=== PATIENT | female | born 1980 | race Caucasian/White ===

== ENCOUNTER 2021-04-15 17:13 | Emergency (ER) | payer MEDICARE, SELFPAY ==
[2021-04-15 17:38] VITALS: BP 114/73; PULSE 101; RESP 20; TEMP 37.1; O2SAT 101
--- NOTE | 2021-04-15 18:30 | ED.URI ---
HPI - URI/Sore Throat General Chief Complaint: Upper Respiratory Infection Stated Complaint: Fever,Cough,Chills Source: patient and RN notes reviewed Limitations: no limitations History of Present Illness HPI Narrative: The vaccinated patient, who is a smoker/rare drinker with RAD, presents with cough. Patient states she had single dose [employer] vaccine on 28 March. Now she complains of a couple day history of fever to 102, cough, congestion. Symptoms are mild, somewhat worse at night; no increased wheezing, CP, vomiting/diarrhea, S OB, rash, loss of taste/smell. [id number] testing for Covid antigen is strongly/early positive. Patient advised to isolate, and follow instructions on the Covid handout. Related Data Home Medications Medication Instructions Recorded Confirmed albuterol sulfate 90 mcg INHALATION PRN PRN 04/15/21 04/15/21 Allergies Allergy/AdvReac Type Severity Reaction Status Date / Time clindamycin Allergy Severe TONGUE Verified 04/15/21 18:35 SWELLING Review of Systems Review of Systems: General/Constitutional: No weight loss, REPORTS fever Eyes: N0: Redness,discharge Ears/Nose/Throat: No: Epistaxis,ear discharge Respiratory: Denies: Hemoptysis Gastrointestinal: No Vomiting, Bleeding-rectal Skin: No Lumps, eruption Neurologic: No Focal Weakness,Sz Hematologic: Denies: Petechiae/Purpura Psychiatric: No: Suicida ideationl All Other Systems: Reviewed and Negative PMFSH Social History Social History Gender identity (if verbalized by the patient): Female Comments At time of signature, agree with nursing past medical, surgical, social and family history. There is no relevant family history pertinent to the presenting complaint Exam Narrative: General Appearance: Slightly flushed/febrile appearing, well nourished EYE: PERRLA, Conjunctiva clear Ears: Auditory canal normal, TM normal Nose: Rhinorrhea, Mucousal erythema Mouth/Throat: MM moist, Supple, Respiratory: No respiratory distress, airway patent Cardiovascular: RRR, No JVD Musculoskeletal: Non tender, Normal strength Skin: Warm, Dry Neurological: A&O x3, CN II-XII intact Psychiatric: Normal mood, Normal affect The patient agrees, in light of health emergency- in my medical judgement, only a personal chat was preferable to fully undress & examine the patient exhibiting potential COVID symptoms, in order to limit risk of infection. Course Vital Signs Vital signs: Vital Signs Temperature 98.8 F 04/15/21 17:38 Pulse Rate 101 H 04/15/21 17:38 Respiratory Rate 20 04/15/21 17:38 Blood Pressure 114/73 04/15/21 17:38 Pulse Oximetry 101 H 04/15/21 17:38 Temperature 98.8 F 04/15/21 17:38 Pulse Rate 101 H 04/15/21 17:38 Respiratory Rate 20 04/15/21 17:38 Blood Pressure 114/73 04/15/21 17:38 Pulse Oximetry 98 04/15/21 18:45 MDM - URI/Sore Throat Lab Data Labs: Lab Results 04/15/21 Range/Units 18:00 POC SARS CoV-2 Ag Positive (Negative) Discharge Plan Discharge Clinical Impression: COVID-19 Patient Disposition: Home, Self-Care Condition: Stable Instructions: COVID-19 (Coronavirus Disease 2019) (ED) Additional Instructions: As discussed begin isolation, and quarantine close family contacts Get vitamins D, B, C, zinc and baby aspirin at pharmacy; and , use your prior pulse oximetry and return for less than a A gradient of<94%.Return if worsens per handout Prescriptions: New benzonatate [Tessalon Perles] 100 mg capsule 100 mg PO TID Qty: 20 RF: 1 albuterol sulfate [Ventolin HFA] 90 mcg/actuation HFA aerosol inhaler 2 puff INHALATION QID PRN (Reason: shortness of breath or wheezing) Qty: 8.5 RF: 1 Discontinued albuterol sulfate [Ventolin HFA] 90 mcg/actuation HFA aerosol inhaler 90 mcg INHALATION DAILY RF: 0 No Action albuterol sulfate 90 mcg/actuation HFA aerosol inhaler 90 mcg INHALATION PRN PRN (Reason: Wh
[2021-04-15 18:45] VITALS: O2SAT 98
== END 2021-04-15 18:55 | disposition home or self-care (01) ==
PROVIDERS: Emergency Provider Emergency Medicine; PCP Family Medicine
DX: U07.1 COVID-19 (principal); J45.909 Unspecified asthma, uncomplicated
CPT/HCPCS: 87426; 99213; C9803; G0463

== ENCOUNTER 2021-05-28 14:54 | Emergency (ER) | payer MEDICARE, SELFPAY ==
--- NOTE | ~2021-05-28 | XR_ITS ---
EXAMINATION: XR chest 2V DATE: 05/28/2021 15:29 INDICATION: Shortness of breath and wheezing TECHNIQUE: PA and lateral views of the chest were obtained. COMPARISON: Chest radiograph dated 09/20/2017 FINDINGS: Chronic pleural parenchymal scarring with unchanged blunting at the right costophrenic angle but not at the posterior sulcus. No airspace opacities, pulmonary edema, pleural effusion or pneumothorax. Th e cardiomediastinal silhouette is normal. Mild thoracic spondylosis with chronic mild anterior wedgin g of a couple mid thoracic vertebral bodies. IMPRESSION: 1. Chronic scarring at the right lung base. No acute cardiopulmonary disease. Reviewed, dictated and finalized at location A.
[2021-05-28 15:09] VITALS: BP 129/91; PULSE 102; RESP 18; TEMP 36.8; O2SAT 98
[2021-05-28 15:33] VITALS: PULSE 100; O2SAT 99
--- NOTE | 2021-05-28 15:41 | ED.SOB ---
HPI - SOB/Dyspnea General Chief Complaint: Shortness of Breath/Dyspnea Stated Complaint: Shortness of breath Source: patient and RN notes reviewed Limitations: no limitations History of Present Illness HPI Narrative: The vaccinated patient, who is a smoker/nondrinker and asthmatic, presents with shortness of breath. Patient states she has a history of cough and occasional wheezing. She reports she had Covid illness half month after her second vaccine, in March. Her last steroids were in February; no fever, CP, sore throat, earache, vomiting/diarrhea. Symptoms are mild, somewhat worse at night/positionally when supine, somewhat seasonal/yearly; patient requests refill of inhaler and allergy med will be given for seasonal component. Related Data Home Medications Medication Instructions Recorded Confirmed albuterol sulfate 90 mcg INHALATION PRN PRN 04/15/21 04/15/21 albuterol sulfate [Ventolin HFA] 2 puff INHALATION PRN PRN 05/28/21 05/28/21 duloxetine 30 mg PO DAILY 05/28/21 05/28/21 hydroxyzine HCl 25 mg PO DAILY 05/28/21 05/28/21 ipratropium-albuterol [Combivent 2 puff INHALATION DAILY 05/28/21 05/28/21 Respimat] quetiapine 25 mg PO DAILY 05/28/21 05/28/21 Allergies Allergy/AdvReac Type Severity Reaction Status Date / Time clindamycin Allergy Severe TONGUE Verified 04/15/21 18:35 SWELLING Review of Systems Review of Systems: The patient has been informed that they may have pre-hypertension or Hypertension based on a BP reading in the department. I recommend that the patient call the primary care provider listed on their discharge instructions or a physician of their choice this week to arrange follow up for further evaluation of possible pre-hypertension or Hypertension General/Constitutional: No weight loss,fever Eyes: N0: Redness,discharge Ears/Nose/Throat: No: Epistaxis,ear discharge Respiratory: Denies: Hemoptysis Gastrointestinal: No Vomiting, Bleeding-rectal Skin: No Lumps, eruption Neurologic: No Focal Weakness,Sz Hematologic: Denies: Petechiae/Purpura Psychiatric: No: Suicida ideationl All Other Systems: Reviewed and Negative PMF Social History Social History Gender identity (if verbalized by the patient): Female Comments At time of signature, agree with nursing past medical, surgical, social and family history. There is no relevant family history pertinent to the presenting complaint Exam Narrative: General Appearance: Well appearing, Well nourished EYE: PERRLA, Conjunctiva clear Ears: Auditory canal normal, TM normal Nose: Rhinorrhea, Mucousal erythema Mouth/Throat: MM moist, Uvula midline, Pharyngeal erythema Neck: Supple, No adenopathy Respiratory: No respiratory distress, Breath sounds equal, mild wheezing Cardiovascular: RRR, No JVD Musculoskeletal: Non tender, Normal strength Skin: Warm, Dry Neurological: A&O x3, CN II-XII intact Psychiatric: Normal mood, Normal affect Course Vital Signs Vital signs: Vital Signs Temperature 98.3 F 05/28/21 15:09 Pulse Rate 102 H 05/28/21 15:09 Respiratory Rate 18 05/28/21 15:09 Blood Pressure 129/91 H 05/28/21 15:09 Pulse Oximetry 98 05/28/21 15:09 Temperature 98.3 F 05/28/21 15:09 Pulse Rate 100 05/28/21 15:33 Respiratory Rate 18 05/28/21 15:09 Blood Pressure 129/91 H 05/28/21 15:09 Pulse Oximetry 99 05/28/21 15:33 Discharge Plan Discharge Clinical Impression: Asthma with exacerbation Qualifiers: Asthma severity: mild Asthma persistence: unspecified Qualified Code(s): J45.901 - Unspecified asthma with (acute) exacerbation Patient Disposition: Home, Self-Care Condition: Stable Instructions: Antibiotic Form, Bronchospasm (ED) Prescriptions: New azithromycin 250 mg tablet See Rx Instructions .ROUTE .COMPLEX Qty: 6 RF: 0 prednisone 20 mg tablet 60 mg PO DAILY Qty: 21 RF: 0 benzonatate [Tessalon Perles] 100 mg capsule 100 mg PO TID Qty: 20 RF
== END 2021-05-28 15:50 | disposition home or self-care (01) ==
PROVIDERS: Emergency Provider Emergency Medicine
DX: J45.901 Unspecified asthma with (acute) exacerbation (principal); Z86.16 Personal history of COVID-19; F31.9 Bipolar disorder, unspecified
CPT/HCPCS: 71046; 99203; G0463

== ENCOUNTER 2021-10-31 10:16 | Emergency (ER) | payer MEDICARE, SELFPAY ==
--- NOTE | 2021-10-31 10:18 | ED.URI ---
HPI - URI/Sore Throat General Chief Complaint: Upper Respiratory Infection Stated Complaint: fever, cough, body aches Time Seen by Provider: 10/31/21 10:19 Source: patient and RN notes reviewed History of Present Illness HPI Narrative: Patient is a 41-year-old female who presents the urgent care with complaints of fever, cough, body aches and headache for the last 2 to 3 days. Patient does have a history of asthma and states she has been using her inhaler and nebulizers. Patient has been taking Tylenol for the fever. Patient was Covid positive in May. Denies of any nausea or vomiting. Denies of any ill contacts. No other complaints. No acute distress noted. Patient aware of the plan of care. Some parts of this dictation were generated by voice recognition software and may contain typographical and/or grammatical inaccuracies. Related Data Home Medications Medication Instructions Recorded Confirmed albuterol sulfate 90 mcg INHALATION PRN PRN 04/15/21 10/31/21 duloxetine 30 mg PO DAILY 05/28/21 10/31/21 ipratropium-albuterol [Combivent 2 puff INHALATION DAILY 05/28/21 10/31/21 Respimat] quetiapine 25 mg PO DAILY 05/28/21 10/31/21 Allergies Allergy/AdvReac Type Severity Reaction Status Date / Time clindamycin Allergy Severe TONGUE Verified 04/15/21 18:35 SWELLING Review of Systems Review of Systems: CONSTITUTIONAL: Reports of fever, chills, fatigue EYES: Denies visual changes, redness, or discharge. ENT: Denies rhinorrhea, congestion, sore throat, or otalgia. CARDIOVASCULAR: Denies chest pain, palpitations, or edema. RESPIRATORY: Reports of cough without dyspnea GASTROINTESTINAL: Denies abdominal pain, nausea, vomiting, or diarrhea. GENITOURINARY: Denies dysuria or hematuria. SKIN: Denies rash or itching. MUSCULOSKELETAL: Denies back pain, joint pain. Reports of body aches NEUROLOGIC: Reports of headache All other systems reviewed are negative, except as documented in HPI. [facility] Social History Social History Gender identity (if verbalized by the patient): Female Comments At the time of my signature, I reviewed and agree with the nursing past medical, surgical, social, and family history. There is no relevant family history pertinent to the patient complaint. Exam Narrative: GENERAL: This is a well-nourished, well-developed patient, in no apparent distress. HEAD: normocephalic, atraumatic. EYES: PERRL. Sclera clear/white. Vision is grossly intact. EARS: External ears normal, auditory canals clear and without drainage, TMs normal without perforation. Hearing grossly intact. NOSE: External nose normal with no obvious nasal discharge, nares without redness, no rhinorrhea. THROAT: Mucous membranes moist, posterior pharynx clear. Moderate postnasal drainage NECK: Neck supple, non-tender without lymphadenopathy CARDIOVASCULAR: Regular rate and rhythm without murmurs, gallops, or rubs. RESPIRATORY: Expiratory wheezes to bilateral upper lobes with slight crackles throughout. SKIN: warm, intact with no suspicious lesions or rash, good texture and turgor. NEURO: awake, alert, and oriented to person, place and time. There were no obvious focal neurologic abnormalities. EXTREMITIES: No clubbing, cyanosis, or edema. Course Course Level of Care: Express Care Visit Vital Signs Vital signs: Vital Signs Temperature 97.3 F L 10/31/21 10:35 Pulse Rate 89 10/31/21 10:35 Respiratory Rate 16 10/31/21 10:35 Blood Pressure 128/77 10/31/21 10:35 Pulse Oximetry 98 10/31/21 10:35 Temperature 97.3 F L 10/31/21 10:35 Pulse Rate 89 10/31/21 10:35 Respiratory Rate 16 10/31/21 10:35 Blood Pressure 128/77 10/31/21 10:35 Pulse Oximetry 98 10/31/21 10:35 Reviewed MDM - URI/Sore Throat MDM Narrative Medical decision making narrative: Reviewed lab results with the patient. She is aware that rapid Covid, influenza and strep were all negative. Educated patient on strep culture we will call
[2021-10-31 10:35] VITALS: BP 128/77; PULSE 89; RESP 16; TEMP 36.3; O2SAT 98
== END 2021-10-31 11:27 | disposition home or self-care (01) ==
PROVIDERS: Emergency Provider Nurse Practitioner Family; PCP Family Medicine
DX: J40 Bronchitis, not specified as acute or chronic (principal); Z20.822 Contact with and (suspected) exposure to COVID-19; J45.909 Unspecified asthma, uncomplicated; F31.9 Bipolar disorder, unspecified; Z86.16 Personal history of COVID-19
CPT/HCPCS: 87081; 87426; 87804; 87880; 99213; C9803; G0463

== ENCOUNTER 2023-08-05 19:08 | Emergency (ER) | payer MEDICARE, SELFPAY ==
[2023-08-05 19:12] VITALS: BP 144/87; PULSE 83; RESP 20; TEMP 37.4; O2SAT 100
--- NOTE | 2023-08-05 19:17 | ED.GENADULT ---
HPI - General Adult General Chief complaint: Nausea/Vomiting/Diarrhea Stated complaint: Vomiting, Diarrhea Source: patient, RN notes reviewed and old records reviewed Mode of arrival: ambulatory Limitations: no limitations History of Present Illness HPI narrative: 43-year-old female presents to [facility] with complaint of fever that started last p.m. then today had nausea, vomiting, diarrhea. Patient states vomited approximately 6 times today. Patient states taking Zofran that does help. complaint: N/V/D Onset (ago): day(s) (1) Related Data Home Medications Medication Instructions Recorded Confirmed albuterol sulfate 90 mcg/actuation 90 mcg inhalation Q4-6H PRN 04/15/21 08/05/23 aerosol inhaler Wheezing ipratropium 20 mcg-albuterol 100 2 puff inhalation DAILY 05/28/21 08/05/23 mcg/actuation mist for inhalation (Combivent Respimat) quetiapine 25 mg tablet 25 mg PO DAILY 05/28/21 08/05/23 duloxetine 40 mg capsule,delayed 40 mg PO DAILY 08/05/23 08/05/23 release ondansetron HCl 4 mg tablet 4 mg PO Q6H PRN Nausea And Vomiting 08/05/23 08/05/23 Allergies Allergy/AdvReac Type Severity Reaction Status Date / Time clindamycin Allergy Severe TONGUE Verified 08/05/23 19:23 SWELLING Review of Systems Constitutional: Constitutional: Reports no additional constitutional complaints, Reports body ache(s), Denies chills, Denies fatigue, Reports fever(s) and Denies headache(s) Eyes: Eyes: Reports no additional eye complaints and Denies blurry vision ENT: Reports system reviewed and no additional complaints, except as documented, Denies vertigo, Denies dizziness, Denies ear discharge, Denies otalgia, Denies facial pain, Denies headache(s), Denies nasal congestion, Denies nasal discharge, Denies sinus pain, Denies sinus pressure and Denies sore throat Cardiovascular: Cardiovascular: Reports no additional cardiovascular complaints, Denies chest pain, Denies chest pain at rest, Denies rapid heart rate and Denies dyspnea Respiratory: Respiratory: Reports no additional respiratory complaints, Denies chest congestion, Denies cough, Denies pain on inspiration, Denies pain with cough and Denies dyspnea Gastrointestinal: Gastrointestinal: Reports as per HPI, Reports abdominal pain, Reports diarrhea, Reports nausea and Reports vomiting Integumentary/Breasts: Skin/Breast: Denies rash Neurologic: Reports system reviewed and no additional complaints, except as documented, Denies vertigo, Denies dizziness and Denies headache(s) Endocrine: Endocrine: Denies fatigue PMFSH Social History Social History Gender identity (if verbalized by the patient): Female Comments At the time of my signature, I reviewed and agree with the nursing past medical, surgical, social, and family history. There is no relevant family history pertinent to the patient complaint. Exam Const: General: cooperative, healthy appearing, no acute distress and well nourished Nutritional Appearance: well nourished Orientation/consciousness: patient oriented x3 Limitations: no limitations HENMT: Head: normal to inspection and normocephalic Ears: external ears normal, TM's normal bilaterally, mastoids normal and Abnormal EAC present Face/Nose/Sinus: normal facial exam Face and sinus: normal facial exam Mouth: Yes Normal oral and palatal mucosa present, Yes oropharynx normal and Yes moist mucous membranes Throat: tonsils normal, uvula midline and no uvular edema Eyes: General: appearance normal, both eyes and all related structures Sclera: sclerae normal Pupils: Equal, round and reactive pupils present Resp: Effort & Inspection: normal respiratory effort, able to speak in complete sentences, no audible wheezes, no cough, no respiratory distress and no retractions Auscultation: clear to auscultation bilaterally, no crackles, no rales, no rhonchi and no wheezes Cardio: Rate: regular rate Rhythm: reg
== END 2023-08-05 19:40 | disposition home or self-care (01) ==
PROVIDERS: Emergency Provider Registered Nurse; PCP Family Medicine
DX: K52.9 Noninfective gastroenteritis and colitis, unspecified (principal); Z79.899 Other long term (current) drug therapy; Z20.822 Contact with and (suspected) exposure to COVID-19
CPT/HCPCS: 87426; 87804; 99213; C9803; G0463

== ENCOUNTER 2023-08-27 18:42 | Emergency (ER) | payer MEDICARE, SELFPAY ==
[2023-08-27 18:50] VITALS: BP 118/70; PULSE 81; RESP 18; TEMP 36.9; O2SAT 99
--- NOTE | 2023-08-27 19:35 | ED.GENADULT ---
HPI - General Adult General Chief complaint: Nausea/Vomiting/Diarrhea Stated complaint: nausea/diarrhea Time Seen by Provider: 08/27/23 19:35 Source: patient, RN notes reviewed and old records reviewed Mode of arrival: ambulatory Limitations: no limitations History of Present Illness HPI narrative: 43-year-old female presents to [facility] with complaints of having nausea and vomiting 2 weeks ago that lasted about a week. Patient reports that had return of nausea and vomiting and diarrhea yesterday, afebrile with no blood noted in emesis or stools, which has improved today with use of Zofran and Imodium, no symptoms this evening and wants to return to work tomorrow. Patient reports no fevers and has been able to eat and drink this evening with no symptoms and is urinating well. MD complaint: episode of nausea and vomiting yesterday which has resolved Onset (ago): day(s) (1) Treatments prior to arrival: other (zofran and imodium) Related Data Home Medications Medication Instructions Recorded Confirmed quetiapine 25 mg tablet 25 mg PO DAILY 05/28/21 08/27/23 albuterol sulfate 90 mcg/actuation See Rx Instructions .Route 08/27/23 08/27/23 aerosol inhaler .COMPLEX PRN sob buprenorphine 300 mg/1.5 mL See Rx Instructions .Route .COMPLEX 08/27/23 08/27/23 solution,exten.rel.subcutaneous syringe (Sublocade) duloxetine 40 mg capsule,delayed mg PO 08/27/23 08/27/23 release ipratropium 20 mcg-albuterol 100 inhalation 08/27/23 mcg/actuation mist for inhalation (Combivent Respimat) Allergies Allergy/AdvReac Type Severity Reaction Status Date / Time clindamycin Allergy Severe TONGUE Verified 08/27/23 19:24 SWELLING Review of Systems Review of Systems: CONSTITUTIONAL: Denies malaise, chills, sweats, or fever. EYES: Denies visual changes, redness, or discharge. ENT: Reports no rhinorrhea, congestion, sinus pain, otalgia or sore throat. CARDIOVASCULAR: Denies chest pain, palpitations, or edema. RESPIRATORY: Reports cough.? Denies dyspnea. GASTROINTESTINAL: Denies abdominal pain,no present nausea, vomiting, diarrhea SKIN: Denies rash or itching. MUSCULOSKELETAL: Denies myalgia. NEUROLOGIC: Denies headache. All systems reviewed & are unremarkable except as noted in HPI and below PMFSH Past Medical History Medical History (Updated 08/28/23 @ 13:29 by Cortney Steele NP) Asthma Bipolar disorder History of sinus problem Pneumonia Surgical History Surgical History (Updated 08/28/23 @ 13:21 by Cortney Steele NP) H/O tubal ligation Social History Social History (Updated 08/28/23 @ 13:20 by Cortney Steele NP) Smoking packs per day: 0.5 Smoking cigarettes per day: 10.0 Years smoked: 25 Smoking pack-years: 12.50 Smoking status: Current every day smoker Tobacco type: cigarettes Alcohol intake: unknown Substance use type: former substance user, 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 There is no relevant family history pertinent to the presenting complaint Exam Narrative: GENERAL: Well-appearing, well-nourished, and in no acute distress. HEAD: Normocephalic EYES: PERRLA, conjunctivae clear ENT: Nares clear, turbinates edematous and erythematous, clear discharge. Mucous membranes moist. TM pearly mccarthy with dull light reflex bilaterally; no tragal tenderness. Oropharynx erythematous without lesions. Tonsils not enlarged and without exudate, no drooling, no hoarseness, no trismus, uvula midline. NECK: Supple. No lymphadenopathy CHEST: Clear to auscultation, breath sounds equal. No wheezing, rhonchi, rales, or stridor. No respiratory distress, speaks in full sentences.no cough noted SAO2 99% on room air HEART: Regular rate and rhythm. No murmur heard. Abdomen: soft and nontender t
== END 2023-08-27 19:50 | disposition home or self-care (01) ==
PROVIDERS: Emergency Provider Registered Nurse; PCP Family Medicine
DX: R11.2 Nausea with vomiting, unspecified (principal); R19.7 Diarrhea, unspecified; Z79.899 Other long term (current) drug therapy; F17.210 Nicotine dependence, cigarettes, uncomplicated
CPT/HCPCS: 99211; G0463

== ENCOUNTER 2023-09-25 10:10 | Emergency (ER) | payer MEDICARE, SELFPAY ==
[2023-09-25 10:16] VITALS: BP 141/84; PULSE 85; RESP 14; TEMP 36.7; O2SAT 99
--- NOTE | 2023-09-25 11:27 | ED.URI ---
HPI - URI/Sore Throat General Chief Complaint: Upper Respiratory Infection Stated Complaint: Right Ear Pain/Sore Throat/Fever Time Seen by Provider: 09/25/23 11:20 Source: patient, RN notes reviewed and old records reviewed Mode of arrival: ambulatory Limitations: no limitations History of Present Illness HPI Narrative: 43-year-old female who presents to [facility] with complaints right ear pain, sore throat, headache,with some low-grade fevers up to 100 F since yesterday. Patient reports she has taken Tylenol for her symptoms. Patient does have underlying lung problems; a history of COPD and continues to use tobacco. 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 Patient reports no body aches or chills. MD elicited complaint: fever, sore throat and other (ear pain, headache) Pertinent past history: pneumonia, asthma, seasonal allergies and other (tobacco abuse) Onset (ago): day(s) (day 2 of symptoms) Pain scale (0-10): 3 Able to tolerate fluids by mouth: Yes Treatments prior to arrival: acetaminophen Related Data Home Medications Medication Instructions Recorded Confirmed quetiapine 25 mg tablet 25 mg PO DAILY 05/28/21 09/25/23 albuterol sulfate 90 mcg/actuation See Rx Instructions .Route 08/27/23 09/25/23 aerosol inhaler .COMPLEX PRN sob buprenorphine 300 mg/1.5 mL See Rx Instructions .Route .COMPLEX 08/27/23 09/25/23 solution,exten.rel.subcutaneous syringe (Sublocade) duloxetine 40 mg capsule,delayed 40 mg PO DAILY 08/27/23 09/25/23 release ipratropium 20 mcg-albuterol 100 2 puff inhalation DAILY 08/27/23 09/25/23 mcg/actuation mist for inhalation (Combivent Respimat) ondansetron HCl 4 mg tablet 4 mg PO Q6H PRN Nausea And Vomiting 09/25/23 09/25/23 Allergies Allergy/AdvReac Type Severity Reaction Status Date / Time clindamycin Allergy Severe TONGUE Verified 09/25/23 11:07 SWELLING Review of Systems Review of Systems: CONSTITUTIONAL: Reports malaise, chills, sweats, or fever. EYES: Denies visual changes, redness, or discharge. ENT: Reports rhinorrhea, congestion, sinus pain, right otalgia and sore throat. CARDIOVASCULAR: Denies chest pain, palpitations, or edema. RESPIRATORY: Reports cough.? Denies dyspnea. GASTROINTESTINAL: Denies abdominal pain, nausea, vomiting, diarrhea SKIN: Denies rash or itching. MUSCULOSKELETAL: Denies myalgia. NEUROLOGIC:Reports headache. All systems reviewed & are unremarkable except as noted in HPI and below PMFSH Past Medical History Medical History (Updated 09/27/23 @ 08:39 by Cortney Steele NP) Asthma Bipolar disorder COPD (chronic obstructive pulmonary disease) History of sinus problem Pneumonia Surgical History Surgical History (Updated 08/28/23 @ 13:21 by Cortney Steele NP) H/O tubal ligation Social History Social History (Updated 08/28/23 @ 13:20 by Cortney Steele NP) Smoking packs per day: 0.5 Smoking cigarettes per day: 10.0 Years smoked: 25 Smoking pack-years: 12.50 Smoking status: Current every day smoker Tobacco type: cigarettes Alcohol intake: unknown Substance use type: former substance user, 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 There is no relevant family history pertinent to the presenting complaint Exam Narrative: GENERAL: Well-appearing, well-nourished, and in no acute distress. HEAD: Normocephalic EYES: PERRLA, conjunctivae clear ENT: Nares clear, turbinates edematous and erythematous, clear discharge.headache, Mucous membranes moist. TM pearly mccarthy with dull light reflex bilaterally; no tragal tenderness. Oropharynx erythematous without lesions. Tonsils red enlarged and throat without exudate, no drooling, no hoarseness, no
== END 2023-09-25 11:45 | disposition home or self-care (01) ==
PROVIDERS: Emergency Provider Registered Nurse; PCP Family Medicine
DX: J03.90 Acute tonsillitis, unspecified (principal); Z20.822 Contact with and (suspected) exposure to COVID-19; F17.210 Nicotine dependence, cigarettes, uncomplicated; J44.9 Chronic obstructive pulmonary disease, unspecified; F31.9 Bipolar disorder, unspecified
CPT/HCPCS: 87081; 87426; 87804; 87880; 99213; G0463

== ENCOUNTER 2023-11-13 15:29 | Emergency (ER) | payer MEDICARE, MEDICAID, SELFPAY ==
[2023-11-13 15:34] VITALS: BP 141/84; PULSE 85; RESP 16; TEMP 37; O2SAT 99
--- NOTE | 2023-11-13 15:38 | ED.GENADULT ---
HPI - General Adult General Chief complaint: Upper Respiratory Infection Stated complaint: Sore Throat Source: patient, RN notes reviewed and old records reviewed Mode of arrival: ambulatory Limitations: no limitations History of Present Illness HPI narrative: 43-year-old female presents to [facility] with complaints sore throat and white spots in throat and mouth that started yesterday. Patient states is prone to thrush due to inhaler use. Patient denies any other symptoms. Related Data Home Medications Medication Instructions Recorded Confirmed quetiapine 25 mg tablet 25 mg PO DAILY 05/28/21 11/13/23 albuterol sulfate 90 mcg/actuation See Rx Instructions .Route 08/27/23 11/13/23 aerosol inhaler .COMPLEX PRN sob buprenorphine 300 mg/1.5 mL See Rx Instructions .Route .COMPLEX 08/27/23 11/13/23 solution,exten.rel.subcutaneous syringe (Sublocade) duloxetine 40 mg capsule,delayed 40 mg PO DAILY 08/27/23 11/13/23 release ipratropium 20 mcg-albuterol 100 2 puff inhalation DAILY 08/27/23 11/13/23 mcg/actuation mist for inhalation (Combivent Respimat) ondansetron HCl 4 mg tablet 4 mg PO Q6H PRN Nausea And Vomiting 09/25/23 11/13/23 Allergies Allergy/AdvReac Type Severity Reaction Status Date / Time clindamycin Allergy Severe TONGUE Verified 11/13/23 15:36 SWELLING Review of Systems Constitutional: Constitutional: Reports no additional constitutional complaints, Denies body ache(s), Denies chills, Denies fatigue, Denies fever(s) and Denies headache(s) Eyes: Eyes: Reports no additional eye complaints and Denies blurry vision ENT: Reports system reviewed and no additional complaints, except as documented, Denies vertigo, Denies dizziness, Denies ear discharge, Denies otalgia, Denies facial pain, Denies headache(s), Denies nasal congestion, Denies nasal discharge, Denies sinus pain, Denies sinus pressure and Reports sore throat Cardiovascular: Cardiovascular: Reports no additional cardiovascular complaints, Denies chest pain, Denies chest pain at rest, Denies rapid heart rate and Denies dyspnea Respiratory: Respiratory: Reports no additional respiratory complaints, Denies chest congestion, Denies cough, Denies pain on inspiration, Denies pain with cough and Denies dyspnea Gastrointestinal: Gastrointestinal: Denies abdominal pain, Denies diarrhea, Denies nausea and Denies vomiting Integumentary/Breasts: Skin/Breast: Denies rash Neurologic: Reports system reviewed and no additional complaints, except as documented, Denies vertigo, Denies dizziness and Denies headache(s) Endocrine: Endocrine: Denies fatigue PMFSH Past Medical History Medical History Asthma Bipolar disorder COPD (chronic obstructive pulmonary disease) History of sinus problem Pneumonia Surgical History Surgical History H/O tubal ligation Social History Social History Smoking packs per day: 0.5 Smoking cigarettes per day: 10.0 Years smoked: 25 Smoking pack-years: 12.50 Smoking status: Current every day smoker Tobacco type: cigarettes Alcohol intake: unknown Substance use type: former substance user, 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 There is no relevant family history pertinent to the patient complaint. Exam Const: General: cooperative, healthy appearing, no acute distress and well nourished Nutritional Appearance: well nourished Orientation/consciousness: patient oriented x3 Limitations: no limitations HENMT: Head: normal to inspection and normocephalic Ears: external ears normal, TM's normal bilaterally, EAC's normal and mastoids normal Face
== END 2023-11-13 15:55 | disposition home or self-care (01) ==
PROVIDERS: Emergency Provider Registered Nurse; PCP Family Medicine
DX: B37.0 Candidal stomatitis (principal); F17.210 Nicotine dependence, cigarettes, uncomplicated; J44.9 Chronic obstructive pulmonary disease, unspecified; F31.9 Bipolar disorder, unspecified
CPT/HCPCS: 87081; 87880; 99213; G0463

== ENCOUNTER 2023-12-09 17:26 | Emergency (ER) | payer MEDICARE, MEDICAID, SELFPAY ==
--- NOTE | 2023-12-09 17:36 | ED.GENADULT ---
HPI - General Adult General Chief complaint: Urogenital-Female Stated complaint: Urinary Problem Source: patient, RN notes reviewed and old records reviewed Mode of arrival: ambulatory Limitations: no limitations History of Present Illness HPI narrative: 43-year-old female presents to [facility] with complaints of urinary frequency and burning with urination this started yesterday. Patient denies back pain, fever, nausea, vomiting, abdominal pain. Related Data Home Medications Medication Instructions Recorded Confirmed quetiapine 25 mg tablet 25 mg PO DAILY 05/28/21 12/09/23 albuterol sulfate 90 mcg/actuation See Rx Instructions .Route 08/27/23 12/09/23 aerosol inhaler .COMPLEX PRN sob buprenorphine 300 mg/1.5 mL See Rx Instructions .Route .COMPLEX 08/27/23 12/09/23 solution,exten.rel.subcutaneous syringe (Sublocade) duloxetine 40 mg capsule,delayed 40 mg PO DAILY 08/27/23 12/09/23 release ipratropium 20 mcg-albuterol 100 2 puff inhalation DAILY 08/27/23 12/09/23 mcg/actuation mist for inhalation (Combivent Respimat) ondansetron HCl 4 mg tablet 4 mg PO PRN PRN Nausea 12/09/23 12/09/23 Allergies Allergy/AdvReac Type Severity Reaction Status Date / Time clindamycin Allergy Severe TONGUE Verified 12/09/23 17:43 SWELLING Review of Systems Constitutional: Constitutional: Reports no additional constitutional complaints, Denies body ache(s), Denies chills, Denies fatigue, Denies fever(s) and Denies headache(s) Eyes: Eyes: Reports no additional eye complaints and Denies blurry vision ENT: Reports system reviewed and no additional complaints, except as documented, Denies vertigo, Denies dizziness, Denies ear discharge, Denies otalgia, Denies facial pain, Denies headache(s), Denies nasal congestion, Denies nasal discharge, Denies sinus pain, Denies sinus pressure and Denies sore throat Cardiovascular: Cardiovascular: Reports no additional cardiovascular complaints, Denies chest pain, Denies chest pain at rest, Denies rapid heart rate and Denies dyspnea Respiratory: Respiratory: Reports no additional respiratory complaints, Denies chest congestion, Denies cough, Denies pain on inspiration, Denies pain with cough and Denies dyspnea Gastrointestinal: Gastrointestinal: Denies abdominal pain, Denies diarrhea, Denies nausea and Denies vomiting Genitourinary: Genitourinary: Reports as per HPI, Reports nocturia and Reports dysuria Integumentary/Breasts: Skin/Breast: Denies rash Neurologic: Reports system reviewed and no additional complaints, except as documented, Denies vertigo, Denies dizziness and Denies headache(s) Endocrine: Endocrine: Denies fatigue PMFSH Past Medical History Medical History Asthma Bipolar disorder COPD (chronic obstructive pulmonary disease) History of sinus problem Pneumonia Surgical History Surgical History H/O tubal ligation Social History Social History Smoking packs per day: 0.5 Smoking cigarettes per day: 10.0 Years smoked: 25 Smoking pack-years: 12.50 Smoking status: Current every day smoker Tobacco type: cigarettes Alcohol intake: unknown Substance use type: former substance user, 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 There is no relevant family history pertinent to the patient complaint. Exam Const: General: cooperative, healthy appearing, no acute distress and well nourished Nutritional Appearance: well nourished Orientation/consciousness: patient oriented x3 Limitations: no limitations HENMT: Head: normal to inspection and normocephalic Ears: external ears normal Face/Nose/Sinu
[2023-12-09 17:46] VITALS: BP 112/71; PULSE 86; RESP 18; TEMP 37.1; O2SAT 99
== END 2023-12-09 17:48 | disposition home or self-care (01) ==
PROVIDERS: Emergency Provider Registered Nurse; PCP Family Medicine
DX: N30.01 Acute cystitis with hematuria (principal); J44.9 Chronic obstructive pulmonary disease, unspecified; F31.9 Bipolar disorder, unspecified
CPT/HCPCS: 81003; 87086; 87088; 99213; G0463

== ENCOUNTER 2024-01-08 10:35 | Emergency (ER) | payer MEDICARE, MEDICAID, SELFPAY ==
[2024-01-08 10:44] VITALS: BP 119/74; PULSE 78; RESP 16; TEMP 36.6; O2SAT 96
--- NOTE | 2024-01-08 10:47 | ED.NAVMDI ---
HPI - Nausea/Vomiting/Diarrhea General Chief complaint: Urogenital-Female Stated complaint: nausea Time Seen by Provider: 01/08/24 10:42 Source: patient and RN notes reviewed Mode of arrival: ambulatory Limitations: no limitations History of Present Illness HPI Narrative: 43-year-old female presents concern for nausea, vomiting, dysuria, suprapubic discomfort. Reports symptoms started yesterday. She denies fever, body aches, chills, sweats, back pain. She did not take any medication [id number]. MD elicited complaint: nausea Related Data Home Medications Medication Instructions Recorded Confirmed quetiapine 25 mg tablet 25 mg PO DAILY 05/28/21 01/08/24 albuterol sulfate 90 mcg/actuation See Rx Instructions .Route 08/27/23 01/08/24 aerosol inhaler .COMPLEX PRN sob buprenorphine 300 mg/1.5 mL See Rx Instructions .Route .COMPLEX 08/27/23 01/08/24 solution,exten.rel.subcutaneous syringe (Sublocade) duloxetine 40 mg capsule,delayed 40 mg PO DAILY 08/27/23 01/08/24 release ipratropium 20 mcg-albuterol 100 2 puff inhalation DAILY 08/27/23 01/08/24 mcg/actuation mist for inhalation (Combivent Respimat) fluticasone 250 mcg-salmeterol 50 inhalation 01/08/24 01/08/24 mcg/dose blistr powdr for inhalation (Advair Diskus) varenicline 1 mg tablet See Rx Instructions .Route .COMPLEX 01/08/24 01/08/24 Allergies Allergy/AdvReac Type Severity Reaction Status Date / Time clindamycin Allergy Severe TONGUE Verified 12/09/23 17:43 SWELLING Review of Systems Review of Systems: CONSTITUTIONAL: Denies malaise, chills, sweats, or fever. ENT: Denies rhinorrhea, congestion, sinus pain, otalgia or sore throat. CARDIOVASCULAR: Denies chest pain, palpitations, or edema. RESPIRATORY: Denies cough or dyspnea. GASTROINTESTINAL: Denies abdominal pain, diarrhea, bloody, or mucous stools. Reports nausea and vomiting GENITOURINARY: Reports dysuria, suprapubic pressure, frequency MUSCULOSKELETAL: Denies myalgia. NEUROLOGIC: Denies headache. 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 There is no relevant family history pertinent to the presenting complaint Exam Narrative: GENERAL: Well-appearing, well-nourished, and in no acute distress. HEAD: Normocephalic, atraumatic. EYES: PERRLA, conjunctivae clear, and EOMI. ENT: Nares clear, turbinates pink, no rhinorrhea or epistaxis. Mucous membranes moist. Oropharynx without edema, erythema, or lesions. Tonsils not enlarged and without exudate. NECK: Supple. No lymphadenopathy CHEST: Speaks in full sentences. No respiratory distress. HEART: Regular rate and rhythm. ABDOMEN: Soft, flat, nondistended, nontender. No guarding, rebound tenderness, or rigidity. No pulsatile masses. Bowel sounds present in all four quadrants. No organomegaly. Negative Stacy?s sign. No periumbilical tenderness. No Supra public tenderness or distension. Good femoral pulses bilaterally. No hernia noted. No scars or surface trauma. SKIN: Warm, dry, no rash. NEURO: Alert and oriented x3. PSYCH: Normal mood and
[2024-01-08 10:53] VITALS: BP 119/74; PULSE 78; RESP 16; TEMP 36.6; O2SAT 96
== END 2024-01-08 10:55 | disposition home or self-care (01) ==
PROVIDERS: Emergency Provider Nurse Practitioner; PCP Family Medicine
DX: R11.2 Nausea with vomiting, unspecified (principal); R30.0 Dysuria; R10.30 Lower abdominal pain, unspecified; F17.210 Nicotine dependence, cigarettes, uncomplicated; J44.9 Chronic obstructive pulmonary disease, unspecified
CPT/HCPCS: 81003; 87077; 87086; 87088; 87186; 99213; G0463

== ENCOUNTER 2024-02-24 12:11 | Emergency (ER) | payer MEDICARE, MEDICAID, SELFPAY ==
[2024-02-24 12:22] VITALS: BP 117/70; PULSE 81; RESP 16; TEMP 36.5; O2SAT 95
--- NOTE | 2024-02-24 12:23 | ED.HA ---
HPI - Headache General Chief Complaint: Headache Stated Complaint: Headache Time Seen by Provider: 02/24/24 12:23 Source: patient, RN notes reviewed and old records reviewed Mode of arrival: ambulatory Limitations: no limitations History of Present Illness HPI Narrative: 43-year-old female presents to the [facility] with complaints of a headache. Patient states that she has a history of stress related migraines, reports that her father recently . States she normally takes Imitrex but has not had any. Reports that she tried calling her primary care provider but they have not returned her call yet. States that this feels like her typical migraine with pain just above her eyebrows. Patient is light sensitive. Related Data Home Medications Medication Instructions Recorded Confirmed quetiapine 25 mg tablet 25 mg PO DAILY 05/28/21 01/08/24 albuterol sulfate 90 mcg/actuation See Rx Instructions .Route 08/27/23 01/08/24 aerosol inhaler .COMPLEX PRN sob buprenorphine 300 mg/1.5 mL See Rx Instructions .Route .COMPLEX 08/27/23 01/08/24 solution,exten.rel.subcutaneous syringe (Sublocade) duloxetine 40 mg capsule,delayed 40 mg PO DAILY 08/27/23 01/08/24 release ipratropium 20 mcg-albuterol 100 2 puff inhalation DAILY 08/27/23 01/08/24 mcg/actuation mist for inhalation (Combivent Respimat) fluticasone 250 mcg-salmeterol 50 inhalation 01/08/24 01/08/24 mcg/dose blistr powdr for inhalation (Advair Diskus) varenicline 1 mg tablet See Rx Instructions .Route .COMPLEX 01/08/24 01/08/24 Allergies Allergy/AdvReac Type Severity Reaction Status Date / Time clindamycin Allergy Severe TONGUE Verified 12/09/23 17:43 SWELLING Review of Systems Review of Systems: All systems reviewed & are unremarkable except as noted in HPI and below Constitutional: Constitutional: Reports no additional constitutional complaints Eyes: Eyes: Reports no additional eye complaints ENT: Reports system reviewed and no additional complaints, except as documented Cardiovascular: Cardiovascular: Reports no additional cardiovascular complaints, Denies chest pain and Denies dyspnea Respiratory: Respiratory: Reports no additional respiratory complaints, Denies chest congestion, Denies cough and Denies dyspnea Gastrointestinal: Gastrointestinal: Reports no additional gastrointestinal complaints, Denies abdominal pain, Denies nausea and Denies vomiting Musculoskeletal: Musculoskeletal: Reports no additional musculoskeletal complaints Integumentary/Breasts: Skin/Breast: Reports system reviewed and no additional complaints, except as docu Neurologic: Reports as per HPI, Denies dizziness, Denies syncope and Reports headache(s) Psychiatric: Psychiatric: Reports no additional psychiatric complaints Allergic/Immunologic: Allergic/Immunologic: Reports no additional allergic/immunologic complaints [facility] Past Medical History Medical History Asthma Bipolar disorder COPD (chronic obstructive pulmonary disease) History of sinus problem Pneumonia Surgical History Surgical History H/O tubal ligation Social History Social History Smoking packs per day: 0.5 Smoking cigarettes per day: 10.0 Years smoked: 25 Smoking pack-years: 12.50 Smoking status: Current every day smoker Tobacco type: cigarettes Alcohol intake: unknown Substance use type: former substance user, 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 There is no relevant family history pertinent to the patient complaint. Exam Const: General: cooperative, healthy appearing, comfortable, no acute distress, w
== END 2024-02-24 12:52 | disposition home or self-care (01) ==
PROVIDERS: Emergency Provider Nurse Practitioner; PCP Family Medicine
DX: G43.909 Migraine, unspecified, not intractable, without status migrainosus (principal); F17.210 Nicotine dependence, cigarettes, uncomplicated; J44.9 Chronic obstructive pulmonary disease, unspecified
CPT/HCPCS: 99213; G0463

== ENCOUNTER 2024-03-09 11:05 | Emergency (ER) | payer MEDICARE, MEDICAID, SELFPAY ==
[2024-03-09 11:12] VITALS: BP 128/91; PULSE 86; RESP 20; TEMP 36.4; O2SAT 100
--- NOTE | 2024-03-09 11:51 | ED.GENADULT ---
HPI - General Adult General Chief complaint: Unspecified Stated complaint: Shortness of Breath Source: patient, RN notes reviewed and old records reviewed Mode of arrival: ambulatory Limitations: no limitations History of Present Illness HPI narrative: 43 year old female present to express care with complaints of needing her inhaler refilled. Patient reports that she has been out of her inhalers since , did call doctor's office to gt refills but was told to go to urgent care for evaluation. Patient reports that she has used her nebulizer machine routinely since being out of her inhalers and has not had any acute asthma attacks. Patient does have some scattered wheezes noted, denies any tightness with her breathing, no tachypnea noted or any retractions,SAO2 100% on room air MD complaint: needs inhalers filled Onset (ago): day(s) (5) Treatments prior to arrival: other (has been using her nebulizer with Albuterol) Related Data Home Medications Medication Instructions Recorded Confirmed quetiapine 25 mg tablet 25 mg PO DAILY 05/28/21 01/08/24 albuterol sulfate 90 mcg/actuation See Rx Instructions .Route 08/27/23 01/08/24 aerosol inhaler .COMPLEX PRN sob buprenorphine 300 mg/1.5 mL See Rx Instructions .Route .COMPLEX 08/27/23 01/08/24 solution,exten.rel.subcutaneous syringe (Sublocade) duloxetine 40 mg capsule,delayed 40 mg PO DAILY 08/27/23 01/08/24 release ipratropium 20 mcg-albuterol 100 2 puff inhalation DAILY 08/27/23 01/08/24 mcg/actuation mist for inhalation (Combivent Respimat) fluticasone 250 mcg-salmeterol 50 inhalation 01/08/24 01/08/24 mcg/dose blistr powdr for inhalation (Advair Diskus) varenicline 1 mg tablet See Rx Instructions .Route .COMPLEX 01/08/24 01/08/24 Allergies Allergy/AdvReac Type Severity Reaction Status Date / Time clindamycin Allergy Severe TONGUE Verified 12/09/23 17:43 SWELLING Review of Systems Review of Systems: CONSTITUTIONAL: Denies fever, chills, or sweats. EYES: Denies visual changes, redness, or discharge. ENT: Denies rhinorrhea, congestion, sore throat, or otalgia. CARDIOVASCULAR: Denies chest pain, palpitations, or edema. RESPIRATORY: Denies cough or acute dyspnea. GASTROINTESTINAL: Denies abdominal pain, nausea, vomiting, or diarrhea. GENITOURINARY: Denies dysuria or hematuria. SKIN: Denies rash or itching. MUSCULOSKELETAL: Denies back pain, joint pain, or myalgia. NEUROLOGIC: Denies headache, numbness, or weakness. PSYCHIATRIC: Positive for history of anxiety or depression. 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 There is no relevant family history pertinent to the presenting complaint Exam Narrative: GENERAL: Well-appearing, well-nourished, and in no acute distress. HEAD: Normocephalic, atraumatic. EYES: PERRLA and EOMI. ENT: Nares clear, no rhinorrhea or epistaxis. Mucous membranes moist.TM's normal throat pink with no swelling, NECK: Supple. no lymphadenopathy CHEST: Scattered wheezes, no acute cough or dyspnea voiced, no tachypnea noted or retractio
== END 2024-03-09 12:10 | disposition home or self-care (01) ==
PROVIDERS: Emergency Provider Registered Nurse; PCP Family Medicine
DX: J45.40 Moderate persistent asthma, uncomplicated (principal); F17.210 Nicotine dependence, cigarettes, uncomplicated; J44.9 Chronic obstructive pulmonary disease, unspecified; F31.9 Bipolar disorder, unspecified
CPT/HCPCS: 99211; G0463

== ENCOUNTER 2024-06-18 18:11 | Emergency (ER) | payer MEDICARE, MEDICAID, SELFPAY ==
[2024-06-18 18:23] VITALS: BP 135/83; PULSE 87; RESP 16; TEMP 36.6; O2SAT 100
--- NOTE | 2024-06-18 18:26 | ED_ITS ---
HPI - Female Genitourinary General Chief complaint: Urogenital-Female Stated complaint: Urinary Problem/Vaginal Problem Time Seen by Provider: 06/18/24 18:26 Source: patient, RN notes reviewed and old records reviewed Mode of arrival: ambulatory Limitations: no limitations History of Present Illness HPI Narrative: 44 year old female who presents to [facility] care with complaints of 4 day duration of painful urination with urinary urgency and frequency and also white vaginal discharge with foul odor. Patient reports no nausea or vomiting denies any known fevers, chills or sweats or any CVA or suprapubic tenderness. MD elicited complaint: UTI and other (vaginal discharge with odor) Onset (ago): day(s) (4) Severity: moderate Quality of pain: burning and aching Consistency: intermittent Vaginal discharge: white and vaginal odor Vaginal bleeding: none Treatment prior to arrival: none Related Data Home Medications Medication Instructions Recorded Confirmed albuterol sulfate 90 mcg/actuation See Rx Instructions .Route 08/27/23 06/18/24 aerosol inhaler .COMPLEX PRN sob ipratropium 20 mcg-albuterol 100 2 puff inhalation DAILY 08/27/23 06/18/24 mcg/actuation mist for inhalation (Combivent Respimat) buprenorphine 300 mg/1.5 mL 300 mg subcut MONTHLY 06/18/24 06/18/24 solution,exten.rel.subcutaneous syringe (Sublocade) bupropion HCl 150 mg 24 hr tablet, 150 mg PO DAILY 06/18/24 06/18/24 extended release quetiapine 50 mg tablet 50 mg PO BID 06/18/24 06/18/24 Allergies Allergy/AdvReac Type Severity Reaction Status Date / Time clindamycin Allergy Severe TONGUE Verified 12/09/23 17:43 SWELLING Review of Systems Review of Systems: CONSTITUTIONAL: Denies fever, chills, or sweats. CARDIOVASCULAR: Denies chest pain, palpitations, or edema. RESPIRATORY: Denies cough or dyspnea. GASTROINTESTINAL: Denies abdominal pain, nausea, vomiting, or diarrhea. GENITOURINARY: Reports dysuria, frequency, urgency. Denies flank pain or hematuria.reports vaginal discharge with odor SKIN: Denies rash or itching. MUSCULOSKELETAL: Denies back pain or myalgia. Denies CVA tenderness NEUROLOGIC: Denies headache All systems reviewed & are unremarkable except as noted in HPI and below PMFSH Past Medical History Medical History Asthma Bipolar disorder COPD (chronic obstructive pulmonary disease) History of sinus problem Pneumonia Substance abuse in remission Surgical History Surgical History H/O tubal ligation Social History Social History Smoking packs per day: 0.5 Smoking cigarettes per day: 10.0 Years smoked: 25 Smoking pack-years: 12.50 Smoking status: Current every day smoker Tobacco type: cigarettes Alcohol intake: unknown Substance use type: former substance user, 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 There is no relevant family history pertinent to the presenting complaint Exam Narrative: GENERAL: Well-appearing, well-nourished, and in no acute distress. HEAD: Normocephalic, atraumatic. NECK: Supple. no lymphadenopathy CHEST: Clear to auscultation. No respiratory distress.SAO2 100% on room air HEART: Regular rate and rhythm. No murmur heard. Normal peripheral pulses. ABDOMEN: Soft, nontender, nondistended, normal active bowel sounds. No CVA tenderness pain with urination and urgency some vaginal discharge white with fol odor EXTREMITIES: Normal range of motion. No edema. SKIN: Warm, dry, no rash. NEURO: No focal deficits. Alert and oriented x3. Course Course Emergency Course: Patient is aware of diagnosis, understands and agrees to treatment plan.? Anticipatory guidance given.? Patient agrees to follow-up as directed and is aware of reasons to seek care at the emergency department. Portions of this record may have been created with voice recognition software Level of Care: Express Care Visit Vital Signs Vital signs: Vital Signs Temperature 36.6 C 06/18/24 18:23 Pulse Rate 87 06/18/24 18:23 Respiratory Rate 16 06/18/24 18:23 Blood Pressure 135/83 06/18/24 18:23 Pulse Oximetry 100 06/18/24 18:23 Oxygen Delivery Room Air 06/18/24 18:23 Temperature 36.6 C 06/18/24 18:42 Pulse Rate 87 06/18/24 18:42 Respiratory Rate 16 06/18/24 18:42 Blood Pressure 135/83 06/18/24 18:42 Pulse Oximetry 100 06/18/24 18:42 Oxygen Delivery Room Air 06/18/24 18:42 reviewed MDM - Female Genitourinary MDM Narrative Medical decision making narrative: Exam findings and UA show no acute concerns or changes; patient is non-toxic appearing and is in no distress.? Patient is appropriate for outpatient treatment and follow-up. Differential Diagnosis Differential diagnosis: Likely urinary tract infection, bacterial vaginosis, cystitis and other (dysuria) Medical Records Attestation: I reviewed the patient's medical records. Lab Data Attestation: I reviewed the patient's lab results. Lab results narrative: Glucose negative, bilirubin 1+, ketone negative, specific gravity greater than or equal to 1.030, blood negative, pH 6.0, protein negative, urobilinogen 1.0, nitrate negative,leukocyte 1+ Swab for bacterial vaginosis sent for analysis Labs: Lab Results 06/18/24 06/18/24 Range/Units 18:31 18:41 POC Urine Color Dark POC Urine Clarity Cloudy POC Urine pH 6.0 POC Ur Specif Bim 1.030 POC Urine Protein Negative (Negative) POC Ur Glucose (UA) Negative (Negative) POC Urine Ketones Negative (Negative) POC Urine Blood Negative (Negative) POC Urine Nitrite Negative (Negative) POC Urine Bilirubin 1+ (Negative) POC Urine Urobilinogen 1.0 POC U Leukocyte Esteras 1+ (Negative) Bact Vaginosis Panel Positive A (NEGATIVE) Critical Care Time Critical Care Time Critical Care Time: No Discharge Plan Discharge Clinical Impression: BV (bacterial vaginosis) Urinary tract infection Qualifiers: Urinary tract infection type: site unspecified Hematuria presence: without hematuria Qualified Code(s): N39.0 - Urinary tract infection, site not specified Patient Disposition: Home, Self-Care Condition: Stable Instructions: Antibiotic Form, Bacterial Vaginosis (ED), Urinary Tract Infection in Women (ED) Additional Instructions: Increase fluids especially cranberry juice and water Avoid caffeine and carbonated beverages Antibiotic as directed Tylenol/ibuprofen for pain or fever Follow-up with her primary care provider if further problems or concerns Recheck if you have fever over 101, nausea and vomiting. Flagyl by mouth as prescribed absolutely no alcohol with this medication BV swab sent for analysis If your symptoms persist, change or worsen significantly before you can contact your personal physician then please, without delay, go to the emergency department for further evaluation. Follow-up with PCP in 7-10 days or sooner if needed Follow up with PCP soon in regards to your blood pressure which is elevated above threshold for referral. Blood pressure above 120/80 may indicate pre- hypertension. 135/83 Prescriptions: New nitrofurantoin monohyd/m-cryst [Macrobid] 100 mg capsule 100 mg PO Q12H 7 Days Qty: 14 0RF Rx Instructions: must administer with a meal/food metronidazole 500 mg tablet 500 mg PO Q12H Qty: 14 0RF Rx Instructions: absolutely no alcohol with this medication No Action albuterol sulfate 90 mcg/actuation HFA aerosol inhaler See Rx Instructions .ROUTE .COMPLEX PRN (Reason: sob) Rx Instructions: as prescribed Combivent Respimat 20-100 mcg/actuation mist 2 puff INHALATION DAILY fluticasone propion-salmeterol [Advair Diskus] 250-50 mcg/dose blister with device 1 inh inhalation Q12H Qty: 60 0RF bupropion HCl 150 mg tablet extended release 24 hr 150 mg PO DAILY quetiapine 50 mg tablet 50 mg PO BID Sublocade 300 mg/1.5 mL solution, extended rel syringe 300 mg SUBCUT MONTHLY Follow-up/Referrals: Barrera Ding MD [Primary Care Provider] - Time of Disposition: 18:54 Quality Jayla Coma Scale Eyes: Open Verbal: Oriented and Alert Motor: Follows Commands Turpin Coma Total Score: 15
[2024-06-18 18:39] LABS: EDUAAPPEAR Cloudy; EDUABILI 1+ (Negative); EDUABLOOD Negative (Negative); EDUACOLOR1 Dark; EDUAGLUCOSE Negative (Negative); EDUAKETONE Negative (Negative); EDUALEUKO 1+ (Negative); EDUANITRATE Negative (Negative); EDUAPROTEIN Negative (Negative)
[2024-06-18 18:42] VITALS: BP 135/83; PULSE 87; RESP 16; TEMP 36.6; O2SAT 100
[2024-06-20 16:04] LABS: Bacterial Vaginosis POSITIVE (NEGATIVE)
== END 2024-06-18 19:00 | disposition home or self-care (01) ==
PROVIDERS: Emergency Provider Registered Nurse; PCP Internal Medicine
DX: N76.0 Acute vaginitis (principal); N39.0 Urinary tract infection, site not specified; F17.210 Nicotine dependence, cigarettes, uncomplicated; J44.9 Chronic obstructive pulmonary disease, unspecified; F31.9 Bipolar disorder, unspecified
CPT/HCPCS: 81003; 81513; 87086; 99213; G0463

== ENCOUNTER 2024-06-29 08:49 | Emergency (ER) | payer MEDICARE, MEDICAID, SELFPAY ==
[2024-06-29 08:56] VITALS: BP 129/75; PULSE 93; RESP 18; TEMP 37.2; O2SAT 94
--- NOTE | 2024-06-29 09:00 | ED.URI ---
HPI - URI/Sore Throat General Chief Complaint: Upper Respiratory Infection Stated Complaint: cough/wheezing Source: patient Mode of arrival: ambulatory Limitations: no limitations History of Present Illness HPI Narrative: 44-year-old female presented for complaint of cough, sob with exertion, and wheezing worsening for one week. Endorses a history of asthma and has been using albuterol inhaler and neb machine. Denies chest pain, palpitations, n/v/d/f/c. Not taking anything otc for symptoms, stating she is [place]drug [place]' and did not want anything to show. Smokes 1ppd or vapes. Related Data Home Medications Medication Instructions Recorded Confirmed albuterol sulfate 90 mcg/actuation See Rx Instructions .Route 08/27/23 06/18/24 aerosol inhaler .COMPLEX PRN sob ipratropium 20 mcg-albuterol 100 2 puff inhalation DAILY 08/27/23 06/18/24 mcg/actuation mist for inhalation (Combivent Respimat) buprenorphine 300 mg/1.5 mL 300 mg subcut MONTHLY 06/18/24 06/18/24 solution,exten.rel.subcutaneous syringe (Sublocade) bupropion HCl 150 mg 24 hr tablet, 150 mg PO DAILY 06/18/24 06/18/24 extended release quetiapine 50 mg tablet 50 mg PO BID 06/18/24 06/18/24 Allergies Allergy/AdvReac Type Severity Reaction Status Date / Time clindamycin Allergy Severe TONGUE Verified 12/09/23 17:43 SWELLING Review of Systems Review of Systems: CONSTITUTIONAL: Denies body aches, fever, chills, or sweats. EYES: Denies visual changes, redness, or discharge. ENT: Denies rhinorrhea, congestion, sore throat, or otalgia. CARDIOVASCULAR: Denies chest pain, palpitations, or edema. RESPIRATORY: Reports cough, sob, wheezing. GASTROINTESTINAL: Denies abdominal pain, nausea, vomiting, or diarrhea. MUSCULOSKELETAL: Denies back pain, joint pain, or myalgia. NEUROLOGIC: Denies headache All systems reviewed & are unremarkable except as noted in HPI and below PMFSH Past Medical History Medical History Asthma Bipolar disorder COPD (chronic obstructive pulmonary disease) History of sinus problem Pneumonia Substance abuse in remission Surgical History Surgical History H/O tubal ligation Social History Social History (Updated 06/29/24 @ 09:14 by Paige Messina APRN) Smoking packs per day: 1 Smoking cigarettes per day: 20.0 Years smoked: 25 Smoking pack-years: 25.00 Smoking status: Current every day smoker Tobacco type: cigarettes and e-cigarettes/vaping Alcohol intake: unknown Substance use type: former substance user, 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 Please see nursing chart for further information. There is no relevant family history pertinent to the presenting complaint Exam Narrative: GENERAL: mildly ill-appearing, in no acute distress. EYES: EOMI. No redness or drainage. Conjunctivae normal. ENT: Mucous membranes pink and moist. No rhinorrhea. TMs normal bilaterally. Throat normal. Uvula midline. NECK: Normal AROM. Supple. CHEST: No respiratory distress. Wheezing to all fleming. HEART: Regular rate and rhythm. No murmur appreciated. SKIN: Warm, dry, Capillary refill normal. Normal skin turgor. NEURO: Alert and oriented x3. Gait steady. PSYCH: Normal affect. Course Course Emergency Course: Patient is aware of diagnosis, understands and agrees to treatment plan. Anticipatory guidance given. Patient agrees to follow-up as directed and is aware of reasons to seek care at the emergency department. Portions of this record may have been created with voice recognition software Level of Care: Express Care Visit MDM - URI/Sore Throat MDM Narrative Medical decision making narrative: Discussed physical exam findings and reviewed prescriptions. Patient says she has an albuterol inhaler and a nebulizer at home.. Advised supportive measures and signs/symptoms to go to the ER. Pt is appropriate for outpt treatment and f/u. Patient states she is missing drug court today and needs a note. Differential Diagnosis Differential diagnosis: Likely upper respiratory infection, sinusitis, viral infection, bronchitis and other (Angioedema, perforation, asthma exacerbation, pneumonia, PE, tension pneumothorax, cardiac tamponade [place], pericarditis, pleural effusion, CHF, bronchitis, cardiac arrhythmia) Discharge Plan Discharge Clinical Impression: Asthma exacerbation Patient Disposition: Home, Self-Care Condition: Stable Instructions: Antibiotic Form, Asthma (ED) Additional Instructions: Acute bronchitis can be contagious because it is usually caused by infection with a virus or bacteria. It is usually for a few days but you can be contagious for up to one week. Avoid crowds until you do not have a fever and symptoms are improved For asthma: Visit your primary care doctor if You have: wheezing, shortness of breath, or a cough despite taking medicine to prevent attacks. thickening of sputum or Your sputum changes (from clear or white to yellow, green, mccarthy, or bloody) any problems that may be related to the medicines you are taking (such as a rash, itching, swelling, or trouble breathing). using a reliever medicine more than 2 to 3 times per week. Visit the ER if You are: short of breath even at rest or when doing very little physical activity. develop difficulty eating, drinking, or talking due to asthma symptoms. having chest pain or you feel that your heart is beating fast. lightheaded, dizzy, faint or have bluish lips or fingernails. fever or persistent symptoms for more than 2 to 3 days or symptoms suddenly get worse. getting worse and are unresponsive to treatment during an asthma attack. Take the medication as directed Recommend smoking cessation Avoid triggers (dander, pollen, pets etc) Recommend Flonase spray and Zyrtec (or Claritin/Jeanie) Continue your albuterol and nebulizer over the counter Cough syrup may cause drowsiness; avoid driving or take it at night time. Tylenol 1000mg every 8 hours as needed for pain Symptomatic treatment includes: rest, fluids, and increase humidity of the air at home. Follow up with your primary care provider in 3 days Go to the ER for worsening symptoms or concerns Prescriptions: New prednisone 20 mg tablet 20 mg PO DAILY Qty: 18 0RF Rx Instructions: take 3 tablets daily for 3 days, then 2 tablets daily for 3 days then 1 tablet daily for 3 days amoxicillin-pot clavulanate 875-125 mg tablet 1 tablet PO Q12H 7 Days Qty: 14 0RF No Action albuterol sulfate 90 mcg/actuation HFA aerosol inhaler See Rx Instructions .ROUTE .COMPLEX PRN (Reason: sob) Rx Instructions: as prescribed Combivent Respimat 20-100 mcg/actuation mist 2 puff INHALATION DAILY fluticasone propion-salmeterol [Advair Diskus] 250-50 mcg/dose blister with device 1 inh inhalation Q12H Qty: 60 0RF bupropion HCl 150 mg tablet extended release 24 hr 150 mg PO DAILY quetiapine 50 mg tablet 50 mg PO BID Sublocade 300 mg/1.5 mL solution, extended rel syringe 300 mg SUBCUT MONTHLY Follow-up/Referrals: Barrera Ding MD [Primary Care Provider] - Stand Alone Forms: Work/School Release IP Time of Disposition: 09:10
== END 2024-06-29 09:16 | disposition home or self-care (01) ==
PROVIDERS: Emergency Provider Nurse Practitioner Family; PCP Internal Medicine
DX: J45.901 Unspecified asthma with (acute) exacerbation (principal); J44.9 Chronic obstructive pulmonary disease, unspecified; F17.210 Nicotine dependence, cigarettes, uncomplicated; F17.290 Nicotine dependence, other tobacco product, uncomplicated
CPT/HCPCS: 99213; G0463

== ENCOUNTER 2024-08-14 12:30 | Emergency (ER) | payer MEDICARE, MEDICAID, SELFPAY ==
[2024-08-14 12:35] VITALS: BP 117/78; PULSE 76; RESP 18; TEMP 37.3; O2SAT 97
--- NOTE | 2024-08-14 13:32 | ED_ITS ---
HPI - Female Genitourinary General Chief complaint: Urogenital-Female Stated complaint: Urinary Problem Time Seen by Provider: 08/14/24 13:33 Source: patient and RN notes reviewed Mode of arrival: ambulatory Limitations: no limitations History of Present Illness HPI Narrative: 44-year-old female presented for complaint burning with urination, frequency and urgency over the past 4 days. Also reports foul odor and mild lower back pain across both sides. Denies hematuria, nausea, vomiting, abdominal pain, flank pain, constipation, diarrhea, fevers or chills. Denies concern for STD or . Related Data Home Medications ?Medication ?Instructions ?Recorded ?Confirmed ?Last Taken ?Type albuterol sulfate 90 mcg/actuation See Rx Instructions .Route 08/27/23 06/18/24 Unknown History aerosol inhaler .COMPLEX PRN sob ipratropium 20 mcg-albuterol 100 2 puff inhalation DAILY 08/27/23 06/18/24 Unknown History mcg/actuation mist for inhalation (Combivent Respimat) buprenorphine 300 mg/1.5 mL 300 mg subcut MONTHLY 06/18/24 06/18/24 Unknown History solution,exten.rel.subcutaneous syringe (Sublocade) bupropion HCl 150 mg 24 hr tablet, 150 mg PO DAILY 06/18/24 06/18/24 Unknown History extended release quetiapine 50 mg tablet 50 mg PO BID 06/18/24 06/18/24 Unknown History buprenorphine 4 mg-naloxone 1 mg 1 film buccal DAILY 08/14/24 08/14/24 Unknown History sublingual film (Suboxone) Allergies Allergy/AdvReac Type Severity Reaction Status Date / Time clindamycin Allergy Severe TONGUE Verified 12/09/23 17:43 SWELLING Review of Systems Review of Systems: CONSTITUTIONAL: Denies body aches, fever, chills, or sweats. CARDIOVASCULAR: Denies chest pain, palpitations, or edema. RESPIRATORY: Denies cough or dyspnea. GASTROINTESTINAL: Denies abdominal pain, nausea, vomiting, or diarrhea. GENITOURINARY: Reports dysuria, frequency, urgency, denies hematuria, flank pain SKIN: Denies rash, itching, or wounds. MUSCULOSKELETAL: Denies back pain or myalgia. [facility] Past Medical History Medical History Substance abuse in remission COPD (chronic obstructive pulmonary disease) History of sinus problem Pneumonia Asthma Bipolar disorder Surgical History Surgical History H/O tubal ligation Social History Social History Smoking packs per day: 1 Smoking cigarettes per day: 20.0 Years smoked: 25 Smoking pack-years: 25.00 Smoking status: Current every day smoker Tobacco type: cigarettes and e-cigarettes/vaping Alcohol intake: unknown Substance use type: former substance user, 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 Please see nursing chart for further information. There is no relevant family history pertinent to the presenting complaint Exam Narrative: GENERAL: Well-appearing ENT: Mucous membranes pink and moist. NECK: Normal AROM. Supple. CHEST: No respiratory distress. Clear to auscultation. HEART: Regular rate and rhythm. ABDOMEN: Soft, nontender, nondistended, normal active bowel sounds. No CVA tenderness SKIN: Warm, dry, no rash. NEURO: No focal deficits. Alert and oriented x3. Gait steady. PSYCH: Normal affect. Course Course Emergency Course: Patient is aware of diagnosis, understands and agrees to treatment plan. Anticipatory guidance given. Patient agrees to follow-up as directed and is aware of reasons to seek care at the emergency department. Portions of this record may have been created with voice recognition software Level of Care: Express Care Visit Vital Signs Vital signs: Vital Signs Temperature 99.2 F 08/14/24 12:35 Pulse Rate 76 08/14/24 12:35 Respiratory Rate 18 08/14/24 12:35 Blood Pressure 117/78 08/14/24 12:35 Pulse Oximetry 97 08/14/24 12:35 Oxygen Delivery Room Air 08/14/24 12:35 Temperature 99.2 F 08/14/24 12:35 Pulse Rate 76 08/14/24 12:35 Respiratory Rate 18 08/14/24 12:35 Blood Pressure 117/78 08/14/24 12:35 Pulse Oximetry 97 08/14/24 12:35 Oxygen Delivery Room Air 08/14/24 12:35 Reviewed MDM - Female Genitourinary MDM Narrative Medical decision making narrative: Discussed physical exam findings and urine dip. Advised supportive measures and signs/symptoms to go to the ER. Pt is appropriate for outpt treatment and f/u. Differential Diagnosis Differential diagnosis: Likely urinary tract infection, bacterial vaginosis, cystitis and other Discharge Plan Discharge Clinical Impression: Urinary tract infection Patient Disposition: Home, Self-Care Condition: Stable Instructions: Antibiotic Form, Urinary Tract Infection in Women (ED) Additional Instructions: Take the antibiotic as prescribed The urine will be sent of for a culture to identify what type of bacteria is causing your infection. If the culture shows that the antibiotic will not get rid of your infection, you will be notified and a new antibiotic will be called in for you. Increase water intake you will need to follow up with your PCP, call to schedule an appointment. Go to the ER for any worsening symptoms or concerns Patient Language: Armenian Prescriptions: New nitrofurantoin monohyd/m-cryst [Macrobid] 100 mg capsule 100 mg PO Q12H 5 Days Qty: 10 0RF Rx Instructions: must administer with a meal/food No Action albuterol sulfate 90 mcg/actuation HFA aerosol inhaler See Rx Instructions .ROUTE .COMPLEX PRN (Reason: sob) Rx Instructions: as prescribed Combivent Respimat 20-100 mcg/actuation mist 2 puff INHALATION DAILY fluticasone propion-salmeterol [Advair Diskus] 250-50 mcg/dose blister with device 1 inh inhalation Q12H Qty: 60 0RF bupropion HCl 150 mg tablet extended release 24 hr 150 mg PO DAILY quetiapine 50 mg tablet 50 mg PO BID Sublocade 300 mg/1.5 mL solution, extended rel syringe 300 mg SUBCUT MONTHLY buprenorphine-naloxone [Suboxone] 4-1 mg film 1 film buccal DAILY Rx Instructions: place 1 strip/tab under (each) side of tongue prednisone 20 mg tablet 20 mg PO DAILY Qty: 18 0RF Rx Instructions: take 3 tablets daily for 3 days, then 2 tablets daily for 3 days then 1 tablet daily for 3 days amoxicillin-pot clavulanate 875-125 mg tablet 1 tablet PO Q12H 7 Days Qty: 14 0RF Follow-up/Referrals: Barrera Ding MD [Primary Care Provider] - Time of Disposition: 13:36
[2024-08-14 13:41] LABS: EDUAAPPEAR Cloudy; EDUABILI Negative (Negative); EDUABLOOD Trace (Negative); EDUACOLOR1 Yellow; EDUAGLUCOSE Negative (Negative); EDUAKETONE Trace (Negative); EDUALEUKO 2+ (Negative); EDUANITRATE Positive (Negative); EDUAPROTEIN 1+ (Negative); EDUASPGRAVITY 1.025
== END 2024-08-14 13:39 | disposition home or self-care (01) ==
PROVIDERS: Emergency Provider Nurse Practitioner Family; PCP Internal Medicine
DX: N39.0 Urinary tract infection, site not specified (principal); B96.20 Unspecified Escherichia coli [E. coli] as the cause of diseases classified elsewhere; F17.210 Nicotine dependence, cigarettes, uncomplicated; F17.290 Nicotine dependence, other tobacco product, uncomplicated; J44.9 Chronic obstructive pulmonary disease, unspecified; F31.9 Bipolar disorder, unspecified
CPT/HCPCS: 81003; 87086; 87186; 99213; G0463

== ENCOUNTER 2025-08-18 10:50 | Emergency (ER) | payer MEDICARE, SELFPAY ==
--- OUTSIDE RECORDS SUMMARY | 2025-06-02 08:20 | XMS_ITS ---
Author Organization [facility] Address [address] [place] [address] Phone [phone] Care Team Providers Care Cafe Helper Name Role Phone Barrera Ding Primary Care Provider [phone] Olivia Coto Unavailable [phone] REASON FOR VISIT 3 month f/u Social History Sex Observation Social History Observation Description Sex Observation Female Sexual Orientation Social History Observation Description Sexual Orientation Straight or heterose xual Gender Identity Social History Observation Description Gender Identity Female Encounters Date Time Type Facility Location Provider Diagnosis 06/02/2025 08:20 AM Office Visit [address] [address] Olivia Coto Plan Of Treatment No Information Medical (General) History Medical History History ICD Code Asthma Bipolar Disorder Anxiety SABINO AUD Surgical History Surgery Date(Month/Year) Tubal ligation Hospitalization History Reason Date(Month/Year) [facility] for suicide attempt - cutting wr ists ~2008 Pneumonia Progress Notes * Paula MIRANDADOB:[birth year] (45 yo F)Acc No.[id number]:06/02/2025 UNLOCKED PROGRESS NOTE Patient: Paula GRAY Provider: Edin Coto, MSN, BRASSWIND INSTRUMENT REPAIRER, HEARING AID REPAIRER-C :1980 A ge:45 Y S ex:Female Date:06/02/2025 Address:[address] [place], [place] [id number] Pcp:Barrera Ding Subjective: * Chief Complaints: * 1 . 3 month f/u. * Screening: * * Medical History: Objective: * Vitals: Assessment: Plan: * Treatment: * * Electronic signature of Shahzad Coto , [id number] on 08/18/2025 at 11:05 AM PURCHASING MANAGER Sign off status: Pending * Provider: Edin Coto, MSN, BRASSWIND INSTRUMENT REPAIRER, HEARING AID REPAIRER-C Date: 1 Generated for Shaista pedersen/Jannet/eTransmitting on: 11:05 AM PURCHASING MANAGER
[2025-08-18 10:58] VITALS: BP 135/81; PULSE 99; RESP 16; TEMP 37.2; O2SAT 99
--- OUTSIDE RECORDS SUMMARY | 2025-08-18 11:05 | XMS_ITS | Clinical Summary ---
Author Organization [facility] Address [address] [place] [id number] Care Team Providers Care Junior Web Developer Name Role Phone Anish Fair MD Primary Care Provider [phone] Allergies Active Allergy Reactions Criticality Noted Date Comments Clindamycin Anaphylaxis High 04/15/2021 Other reaction(s): anaphylactic shock, TONGUE SWELLING Ketorolac Hives Medium Marijuana/Cannabinoid Anaphylaxis High 01/24/2022 Nalbuphine Hives Medium 10/07/2013 Naproxen Hives Medium Oxycodone-Acetaminophen Itching Low 11/06/2010 Note: CH Tramadol Hives,Rash Medium 01/24/2010 Medications ondansetron (ZOFRAN) 4 mg tablet 09/19/19 24 Active cetirizine (ZyrTEC) 10 mg tablet Take 1 tablet (10 mg total) by mouth daily as needed for allergies 90 tablet 12/11/19 24 Active albuterol 2.5 mg /3 mL (0.083 %) nebulizer solutionIndication s:Bronchospasm Prevention Take 3 mL (2.5 mg total) by nebulization 4 (four) times a day as needed for wheezing or shortness of breath 200 mL 12/11/19 24 Active albuterol HFA (PROVENTIL HFA,VENTOLIN HFA,PROAIR HFA) 90 mcg/actuation inhalerIndications :COPD with acute exacerbation (HCC),Asthma in adult, mild intermittent, uncomplicated INHALE 2 PUFFS EVERY SIX HOURS NEEDED FOR WHEEZING OR SHORTNESS OF BREATH 18 g 05/27/20 24 Active QUEtiapine (SEROquel) 50 mg tablet Take 1 tablet (50 mg total) by mouth nightly 10/18/19 25 Active buPROPion XL (Wellbutrin XL) 150 mg 24 hr tablet Take 1 tablet (150 mg total) by mouth daily Active ipratropium-albute roL (Combivent Respimat) 20-100 mcg/actuation inhaler Inhale 1 puff 4 (four) times a day 12 g 1 11/13/19 25 Active fluticasone propionate (FLONASE) 50 mcg/actuation nasal spray Administer 2 sprays into each nostril daily 16 g 2 11/13/19 25 Active atomoxetine (STRATTERA) 40 mg capsuleIndications :Attention-Deficit Hyperactivity Disorder Take 1 capsule (40 mg total) by mouth daily 30 capsule 2 04/08/20 25 026 Active ondansetron ODT (ZOFRAN-ODT) 4 mg disintegrating tablet Take 1 tablet (4 mg total) by mouth every 8 (eight) hours as needed for nausea or vomiting Allow to dissolve in mouth. 10 tablet 05/28/20 25 Active amoxicillin-clavul anate (AUGMENTIN) 875-125 mg per tablet Take 1 tablet by mouth 2 (two) times a day 20 tablet 07/14/20 25 Active Active Problems Problem Noted Date Diagnosed Date Attention or concentration deficit 04/08/2025 Assessment & Plan (04/08/2025 3:56 PM CDT): Will initiate Strattera. Monitor for side effects. She will keep follow-up with [place] in May. Will defer further management to [place]. She will keep her follow-up with us as scheduled. RTC sooner for any concerns. Thrush, oral 12/28/2024 Class 2 severe obesity due t o excess calories with serious comorbidity and body mass index (BMI) of 36.0 to 36.9 in adult 11/12/2024 Assessment & Plan (11/12/2024 1:00 PM CDT): Continue to work on healthy lifestyle. Tobacco use 12/25/2023 Assessment & Plan (12/25/2023 8:45 AM CDT): Motivated to quit. Smoking cessation counseling was provided for 5 min. Different types of treatment including varenicline, Wellbutrin and nicotine replacement therapy as well as acupuncture were discussed with the patient in detail. She would like to try Chantix again. E scribed. Will monitor response. Scattered fibroglandular tis hansa density of both breasts on mammography 12/25/2023 Assessment & Plan (12/25/2023 8:46 AM CDT): No obvious masses today but very dense fibrocystic breasts. Recommend mammogram. Discussed the importance of completing to rule out any concerning masses that could be cancerous. She is agreeable with plan and states understanding. Encounter for Medicare annual wellness exam 10/17 Assessment & Plan (11/12/2024 12:56 PM CDT): Visit preventive in nature. We reviewed medications, chronic conditions, risk factors, lifestyle recommendations. Reviewed immunization recommendations. Follow-up in 1 year for annual wellness. Assessment & Plan (11/04/2023 2:03 PM CDT): Visit preventive in nature. We reviewed medications, chronic conditions, risk factors, lifestyle recommendations. Reviewed immunization recommendations. Screening labs ordered. Will call with results once received. Follow-up in 1 year for annual wellness. Allergic rhinitis 01/30/2023 01/30/2023 Chronic fatigue syndrome 01/30/2023 023 Migraine without aura, not refractory 01/30/2023 01/30/2023 Acute bronchitis 02/10/2022 Acute bronchospasm 02/10/2022 Major depression, single episode 05/02/2021 01/30/2023 Uncomplicated opioid dependence 12/28/2019 Assessment & Plan (11/12/2024 12:57 PM CDT): Eighteen months sobriety. Keep up the great work! Gastroesophageal reflux disease without esophagi tis 11/04/2019 Assessment & Plan (11/04/2019 1:41 PM CDT): Stable on Zantac. She states she tries to watch her diet but finds it difficult. Centrilobular emphysema 09/29/2018 Assessment & Plan (11/12/2024 12:57 PM CDT): Good job on quitting the cigarettes. Will continue to encourage decreased vaping. Asthma in adult, mild intermittent, uncomplicate d 07/01/2018 01/30/2023 Epidermal cyst 07/01/2018 01/30/2023 Simple chronic bronchitis 01/29/2018 Assessment & Plan (01/29/2018 5:08 PM CDT): Recommend STOP Smoking Continue Advair, Ventolin, and Spiriva Anxiety with limited-symptom attacks 01/29/2018 Assessment & Plan (11/04/2019 1:41 PM CDT): Refills placed. Current dosage is controlling her anxiety when she needs to use it. Pneumonia of left lower lobe due to infectious o rganism 07/28/2017 Nicotine dependence, unspecified, uncomplicated 07/28/2017 Assessment & Plan (11/12/2024 12:55 PM CDT): She did quit cigarettes. Currently vaping. Will continue monitor. Assessment & Plan (11/04/2019 1:42 PM CDT): Encouraged to avoid respiratory irritants and to not smoke. She states she is around people who do smoke. Assessment & Plan (01/29/2018 1:42 PM CDT): Tobacco use is unchanged. Smoking cessation counseling was provided. Tobacco use will be reassessed at the next regular appointment. Quit Smoking https://smokefree.gov/ Nicotine replacement therapy (NRT) is the most commonly used family of quit smoking medications. NRT reduces withdrawal feelings by giving you a small controlled amount of nicotine?but none of the other dangerous chemicals found in cigarettes. This small amount of nicotine helps satisfy your craving for nicotine and reduces the urge to smoke. NRT can t do all the work. It can help with withdrawal and cravings. But it won t completely take away the urge to smoke. Even if you use NRT to help you stop smoking, quitting can still be hard. Combining NRT with other strategies can improve your chances of quitting and staying quit. To give yourself the best chance for success, explore other quit methods you can combine with medication. Also think about: Developing a quit plan. Using quit programs such as SmokefreeTXT or calling a quitline. Using the [employer] van for tips and inspiration to help you be smokefree. Prepare, Reduce creavings and Triggers, Reduce stress, Get Active, Eat Healthy Gum, Patches, Inhaler, lozenges, nasal spray or medications like Wellbutrin, Chantix Remind yourself of the rewards of quitting to help yourself stay on track: 20 minutes: heart rate, blood pressure drop 12 hours: carbon monoxide in blood stream drops to normal 2 weeks-3 months: circulation, lung function improve; heart attack risk begins to drop 1-9 months: cough less, breathe easier 1 year: risk of coronary heart disease cut in half 2-5 years: risk of cancer of mouth, throat, esophagus, bladder cut in half; stroke risk is reduced to that of a nonsmoker 10 years: half as likely to from lung cancer; risk of kidney or pancreatic cancer decreases 15 years: risk of coronary heart disease same as non-smoker s risk EXTRA MONEY COPD with acute exacerbation ([facility]) 7 Assessment & Plan (11/04/2023 2:04 PM CDT): No severe acute distress. Will initiate prednisone taper and azithromycin as these have worked for her in the past. Continue with inhalers. Of course highly encouraged smoking cessation. Will monitor response. Red flags reviewed. Assessment & Plan (11/04/2019 1:42 PM CDT): Continue use of albuterol inhaler nebulizer. It is helping. She needs to avoid tobacco smoke. Bipolar disorder, current episode mixed, moderat e 07/28/2017 Assessment & Plan (04/08/2025 3:55 PM CDT): Currently stable. Compliant with medication regimen. Continues following with [place]. Assessment & Plan (11/12/2024 12:56 PM CDT): Reports stable. Continues following at [place]. Will continue to monitor. Assessment & Plan (11/04/2019 1:43 PM CDT): Well controlled with current medication. Assessment & Plan (01/29/2018 5:09 PM CDT): Psychological condition is unchanged. Continue current treatment regimen. Psychological condition will be reassessed at the next regular appointment.Recommend Exercise. Pt. Decline to see psychiatrist Continue Seroquel Will check TSH for pt's complaints of increase anxiety or panic attacks at night. Sepsis due to pneumonia 07/28/2017 High grade dysplasia of anus 10/07/2013 Overview (01/30/2023): Note: Unchanged Note: Unchanged Menorrhagia 10/07/2013 01/30/2023 Overview (01/30/2023): Note: Unchanged Empyema 09/13/2011 Essential hypertension 10/26/2010 Assessment & Plan (11/12/2024 12:55 PM CDT): Normotensive. Continue healthy lifestyle. Will continue to monitor. Assessment & Plan (12/25/2023 8:46 AM CDT): Currently controlled without the use of medication. Will continue to monitor. Assessment & Plan (11/04/2023 2:00 PM CDT): Controlled with lifestyle modifications. Will continue to monitor. Other and unspecified hyperlipidemia 10/26/2010 01/30/2023 Bipolar I disorder 08/31/2010 01/30/2023 Assessment & Plan (12/25/2023 8:44 AM CDT): Reports moods are stable currently. She follows closely with Psychiatry and will continue to do so. Assessment & Plan (11/04/2023 1:59 PM CDT): Reports currently stable. Follows closely with Psychiatry and will continue to do so. Resolved Problems Problem Noted Date Diagnosed Date Resolved Date Mass of breast 12/25/2023 11/12/2024 Assessment & Plan (12/25/2023 8:46 AM CDT): See plan as above. Moderate persistent asthma w ithout complication 01/29/2018 12/28/2019 Assessment & Plan (11/04/2019 1:42 PM CDT): Controlled when she is using her inhaler nebulizers as ordered. Encounters Date Type Department Care Team Description 07/14/2025 6:25 PM CURING ROOM SUPERVISOR E-Visit [address] [phone] More Mendes, MANAGER OF COMPLIANCE Your Medications 07/14/2025 Patient Self-Triage [facility] [address] [place] [phone] Susu, Generic Provider 05/28/2025 12:20 PM CDT E-Visit [address] [phone] Christine Moreira, JANIA Your Medications 05/28/2025 Patient Self-Triage [facility] [address] [place] [id number] Mychart, Generic Provider from Last 3 Months Immunizations Immunization Administration Dates Next Due Influenza, Quadrivalent, Spl it, Intramuscular 05/24/2015 Influenza, Quadrivalent, Spl it, Preservative Free, Intramuscular 06/11/2022,05/26/2018,06/26/2017 Influenza, Trivalent, Preser vative Free, Intramuscular 11/12/2024 Influenza, Unspecified 11/17/2023(Deferr ed: Patient Refused),11/04/2023(Deferred: Patient Refused),05/19/2021,11/04/2019(Deferre d: Patient Refused),05/19/2019(Deferred: Patient Refused),08/19/2018(Deferred: Patient Refused),05/19/2017 Pneumococcal Conjugate PCV 13 05/26/2018 Tdap 06/11/2022 Surgical History Surgery Date Site/Laterality Comments OTHER SURGICAL HISTORY Hysterectomy, total, removal of both tubes and ovaries OTHER SURGICAL HISTORY 4 chest tubes right lung ABDOMINAL SURGERY 08/19/2009 - 08/18/2010 tubal ligation TUBAL LIGATION 2009 Medical History Medical History Date Comments Hx Other Medical Bipolar Hx Other Medical Headache, migra ine Asthma Asthma Hx Other Medical BiPolar Disorde r Hypercholesterolemia High choles terol Tachycardia COPD (chronic obstructive pulmonary disease) Heroin dependence ([facility]) Essential hypertension 10/26/2010 Smoking Depression Substance abuse ([facility]) 2005 Migraines 1997 Family History Medical History Relation Name Comments Alcohol abuse Father Esvin Cancer Father Esvin Depression Father Esvin Depression; Hearing loss Father Esvin Heart disease Father Esvin Cardiovascular disease; Hyperlipidemia Father Esvin High choleste rol; Hypertension Father Esvin Hypertension; Rashes / Skin problems Father Esvin Breast cancer Father's Sister Breast cancer Maternal Grandmother Alcohol abuse Mother Ce COPD Mother Ce COPD; Drug abuse Mother Ce Hyperlipidemia Mother Ce High choleste rol; Hypertension Mother Ce Hypertension; Migraines Mother Ce Migraine; Rheum arthritis Mother Ce Rheumatoid a rthritis; Breast cancer Mother's Sister Breast cancer Paternal Grandmother Relation Name Status Comments Father Esvin Father's Sister Maternal Grandmother Mother Ce (Age 69) Mother's Sister Paternal Grandmother Social History Tobacco Use Types Packs/Day Years Used Date Smoking Tobacco: Former Cigarettes 0.5 29 S tarted: 1996 Vaping Smokeless Tobacco: Never Tobacco Cessation:Counseling Given: Not Answered Alcohol Use Standard Drinks/Week Comments No 0 (1 standard drink = 0.6 oz pur e alcohol) PHQ-2 Answer Date Recorded PHQ-2 Total Score (If total score is 3 or more points, staff should administer the PHQ-9) 0 11/12/2024 Personal Safety Answer Date Recorded Have you ever been in or are you currently in a harmful physical or emotional relationship or is someone making you feel afraid or unsafe? Denies 09/06/2024 Comments No Sex and Gender Information Value Date Recorded Sex Assigned at Not on file Legal Sex Female 1:03 AM CURING ROOM SUPERVISOR Gender Identity Female 01/30/2023 9:24 AM CDT Sexual Orientation Not on file Obstetrics History Para Term AB IAB SAB Ectopic Multiple Livin g Live Births 1 1 1 Date Outcome GA Total Labor Labor/2nd/3rd Weight Sex Type Anes PTL Victoria A1 A5 Name Clin Term Last Filed Vital Signs Vital Sign Reading Time Taken Comments Blood Pressure 130/80 04/08/2025 3:11 PM CDT Pulse 71 04/08/2025 3:11 PM CDT Temperature 36.4 C (97.6 F) 04/08/2025 3:11 PM CDT Respiratory Rate 20 04/08/2025 3:11 PM CDT Oxygen Saturation 99% 04/08/2025 3:11 PM CDT Inhaled Oxygen Concentration - - Weight 108.1 kg (238 lb 6.4 oz) 04/08/2025 3:11 PM CDT Height 170.2 cm (5' 7.01) 04/08/2025 3:11 PM CD T Body Mass Index 37.33 04/08/2025 3:11 PM CDT Plan of Treatment Health Maintenance Due Date Last Done Comments Cervical Cancer Screening 1980 Colon Cancer Screening-Colonoscopy 1980 Hepatitis C Screening 1980 Varicella Vaccines (1 of 2 - 13+ 2-dose series) 1993 Hepatitis B Screening 1998 HPV Vaccines (1 - 3-dose SCD M series) 2007 Pneumococcal vaccine <65 (2 of 2 - PPSV23, PCV20, or PCV21) 07/21/2018 05/26/2018 Breast Cancer Screening-Mammogram 03/30/2025 024 Covid-19 Vaccine (2 - 2024-2 6 season) 2025 03/28/2021 Influenza Vaccine (#1) 2025 , 06/11/2022, 05/19/2021, Additional history exists Depression Screening 11/12/2025 11/12/2024, 11/04/2023, 06/11/2022, Additional history exists Regular Well Visit/Exam 18-64 11/12/2025, 11/04/2023, 11/04/2019 DTaP/Tdap/Td Vaccine (2 - Td or Tdap) 06/11/2032 06/11/2022 Procedures Procedure Name Priority Date/Time Associated Diagnosis Comments DIAGNOSTIC MAMMOGRAM BILATERAL W PRAMOD Schedule Routine, Read Routine (OP Routine) 03/30/2024 9:06 AM CDT Other signs and symptoms in breast Mass of upper inner quadrant of right breast from Last 3 Months or Most Recently Relevant to Health Maintenance Results * Diagnostic Mammogram Bilateral W Pramod (03/30/2024 9:06 AM CDT) Anatomical Region Laterality Modality Breast Bilateral Mammography 03/30/2024 10:1 0 AM CDT Impressions 03/30/2024 10:10 AM CDT There is no mammographic or sonographic evidence of malignancy. The palpable area in the right breast should be managed clinically. Bilateral nipple discharge is physiologic by history. This should be managed clinically. A 1 year screening mammogram is recommended. BI-RADS: 1 - Negative. The patient has been or will be contacted. The patient will be entered into a reminder system with a target due date of 1 year for her next mammogram. Electronically signed by: Rebecca Foote M.D. Narrative 03/30/2024 10:10 AM CDT EXAMINATION: DIAGNOSTIC MAMMOGRAM BILATERAL W PRAMOD, US BREAST BILATERAL LIMITED ORDERING HEALTHCARE PROVIDER: SHIVANI COX HISTORY: Palpable focus right breast, bilateral whitish nipple discharge on expression. COMPARISON: 02/28/2009 TECHNIQUE: CC and MLO views of the bilateral breasts were obtained with digital technique using breast tomosynthesis with C view. Computer aided detection was utilized. FINDINGS: DENSITY: There are scattered fibroglandular elements in the bilateral breasts. BREASTS: A marker was placed at the site of the palpable focus in the right breast. No mammographic abnormality is appreciated. No mammographic abnormalities appreciated in the subareolar regions of either breast. There are no suspicious masses, suspicious calcifications, or other suspicious findings in either breast. There has been no suspicious interval change. TARGETED BILATERAL BREAST ULTRASOUND Targeted RIGHT breast ultrasound was performed in the region of interest. Per the patient the palpable area correlates as the 1 o'clock position 4 to 5 cm from the nipple. No sonographic abnormality is appreciated. Additionally, the subareolar tissues were sonographically interrogated. No abnormal dilated ducts or solid lesions are appreciated. Targeted LEFT breast ultrasound was performed in the region of interest. No dilated ducts or solid intraductal lesions are appreciated. us Shivani Cox MANAGER OF COMPLIANCE IMG MAMMO PROCEDURES Final Result from Last 3 Months or Most Recently Relevant to Health Maintenance Insurance [employer] MEDICARE [employer] MEDICARE [facility] Address: [address] [address] [place] [address] Advance Directives For more information, please contact: [phone] * Full Code (Latest Code Status on File) Date Activated Date Inactivated Comments 07/28/2017 4:50 PM 07/29/2017 10:29 PM Care Teams Junior Web Developer Relationship Specialty Start Date End Date Anish Fair MD [address] [place] [address] PCP - General 11/16/16
--- OUTSIDE RECORDS SUMMARY | 2025-08-18 11:05 | XMS_ITS | Clinical Summary ---
Author Organization [facility] Address [address] [place] [address] Phone Care Team Providers Care Exchange Trouble Shooter Name Role Phone Anish Fair MD Primary Care Provider [phone] Allergies Active Allergy Reactions Criticality Noted Date Comments Clindamycin Swelling High 06/25/2015 Naproxen Rash Medium 06/25/2015 Nalbuphine Rash Medium 06/25/2015 Prednisone Hives 01/27/2013 Ketorolac Tromethamine Rash Medium 06/25/2015 Tramadol Rash Medium 06/25/2015 Medications QUEtiapine Fumarate (SEROQUEL PO) Take 800 mg by mouth nightly. Active Tiotropium [place] Monohydrate (SPIRIVA HANDIHALER IN) take by inhalation. Active Fluticasone-Salm eterol (ADVAIR DISKUS IN) take by inhalation. Active HYDROmorphone (DILAUDID) 2 MG Tablet Take 1 Tab by mouth every 6 hours as needed for Pain. 6 Tab 7 Active Additional Information Patient not taking.Reported on 03/15/2021 metoclopramide (REGLAN) 10 MG Tablet Take 1 Tab by mouth 4 times daily as needed for Nausea. 10 Tab 7 Active Additional Information Patient not taking.Reported on 03/15/2021 diphenhydrAMINE (BENADRYL) 25 MG Capsule Take 1 Cap by mouth every 6 hours as needed for Other (headache). 10 Cap 7 Active HYDROcodone-acet aminophen (NORCO) 5-325 MG Tablet Take 1-2 Tabs by mouth every 8 hours as needed for Pain. 8 Tab 8 Active HYDROcodone-acet aminophen (NORCO) 5-325 MG Tablet Take 1 Tab by mouth every 6 hours as needed for Pain. 10 Tab 8 Active Additional Information Patient not taking.Reported on 03/15/2021 oxyCODONE-acetam inophen (PERCOCET) 5-325 MG TabletIndication s:Pain Take 1 Tab by mouth every 6 hours as needed. Active hydrOXYzine (VISTARIL) 50 MG CapsuleIndicatio ns:Anxiety Take 100 mg by mouth 2 times daily. Active methadone (METHADOSE) 40 MG TABLET SOLUBLE Take 150 mg by mouth daily. Active oxyCODONE-acetam inophen (PERCOCET) 5-325 MG Tablet Take 1 Tab by mouth every 4 hours as needed for Moderate or more severe pain. 20 Tab 8 Active Additional Information Patient not taking.Reported on 03/15/2021 fluticasone (FLONASE) 50 MCG/ACT Suspension ADMINISTER 2 SPRAYS INTO EACH NOSTRIL DAILY 1 Active Ventolin HFA 108 (90 Base) MCG/ACT Aerosol Solution INHALE 2 PUFFS BY MOUTH EVERY 4 HOURS NEEDED FOR WHEEZING 1 Active Active Problems Problem Noted Date Diagnosed Date Epidermal cyst 07/01/2018 COPD without exacerbation 07/01/2018 History of heroin abuse 07/01/2018 Asthma in adult, mild intermittent, uncomplicate d 07/01/2018 Immunizations Immunization Administration Dates Next Due Pneumococcal Vaccine - 13 Valent 05/26/2018 Family History Medical History Relation Name Comments Heart Disease Father Chronic Obstructive Pulmonary Disease Mother Congestive Heart Failure Mother Relation Name Status Comments Father Alive Mother Social History Tobacco Use Types Packs/Day Years Used Date Smoking Tobacco: Every Day Cigarettes 0.5 28 Started: 1997 Smokeless Tobacco: Never Tobacco Cessation:Ready to Q uit: No; Counseling Given: Yes Alcohol Use Standard Drinks/Week Comments No 0 (1 standard drink = 0.6 oz pur e alcohol) Comments No Sex and Gender Information Value Date Recorded Sex Assigned at Not on file Legal Sex Female 12:00 AM CDT Gender Identity Not on file Sexual Orientation Not on file Last Filed Vital Signs Vital Sign Reading Time Taken Comments Blood Pressure 169/89 04/12/2022 8:27 AM CDT Pulse 109 04/12/2022 8:27 AM CDT Temperature 36.3 C (97.4 F) 04/12/2022 8:27 AM CDT Respiratory Rate 21 04/12/2022 8:27 AM CDT Oxygen Saturation 100% 04/12/2022 8:27 AM CDT Inhaled Oxygen Concentration - - Weight 102.1 kg (225 lb) 04/12/2022 8:27 AM CDT Height 167.6 cm (5' 6) 04/12/2022 8:27 AM CDT Body Mass Index 36.32 04/12/2022 8:27 AM CDT Plan of Treatment Health Maintenance Due Date Last Done Comments Hepatitis C Virus (HCV) Screening 1980 TdaP Immunization 1980 Hepatitis B Immunization (1 of 3 - 19+ 3-dose series) 1999 Pap Smear 2001 Cervical Cancer Screening (CCS) 2010 HPV/Cotest 2010 Medicare Initial AWV [id number] 03/19/2011 Pneumococcal Immunization Co mbined (2 of 2 - PPSV23, PCV20, or PCV21) 07/21/2018 05/26/2018 Influenza Immunization (#1) 2025 SARS-COV-2 Immunization (2 - season) 2025 03/28/2021 Cologuard 2025 Colonoscopy 2025 Colorectal Cancer Screening 2025 Immunochemical Fecal Occult Blood 2025 Respiratory Syncytial Virus (RSV) Immunization (Adult) (1 - 1-dose 75+ series) 2055 Human Papillomavirus (HPV) Immunization (No Doses Required) Completed Meningococcal Immunization (ACWY) Aged Out No longer eligible based on patient's age to complete this topic Rotavirus Immunization Aged Out No lo nger eligible based on patient's age to complete this topic Insurance MEDICARE Care Teams Exchange Trouble Shooter Relationship Specialty Start Date End Date Anish Fair MD [address] [place] [address] PCP - General Internal Medicine 05/13/17
--- OUTSIDE RECORDS SUMMARY | 2025-08-18 11:05 | XMS_ITS | Patient Health Record ---
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 11/23/2024 Other Reasons, potential benefits, potential risks, interactions and side effects of all medications were discussed. The Patient/Guardian asked appropriate questions, appeared to understand the answers, and decided to accept the treatment and continue being followed. Alternatives and expected course without treatment were reviewed. The Patient/Guardian is aware of the need to contact the office or return for an earlier appointment if any problems or concerns arise. May also contact the 24-hour crisis hotline ([facility]), refer to the closest emergency room or call 911 if new symptoms arise of existing symptoms worsen. The Patient/Guardian is aware that this would apply to symptoms like: suicidal ideation, homicidal ideation, high risk behaviors, manic symptoms, psychotic symptoms, physical symptoms, or any other symptoms that may be dangerous to self or others. Greater than 50% of time spent on coordination and counseling where psychopharmacology as well as psychotherapeutic interventions were discussed along with review of treatments in the past. Education provided concerning need for adequate hydration. Patient/Guardian verbalized understanding of education, treatment plan and follow up. This session was completed telephonically with client/parental/rafael n consent: Unable to determine movement status, assess appearance, affect, AIMS, or vital signs. 03/08/2025 Other Reasons, potential benefits, potential risks, interactions and side effects of all medications were discussed. The Patient/Guardian asked appropriate questions, appeared to understand the answers, and decided to accept the treatment and continue being followed. Alternatives and expected course without treatment were reviewed. The Patient/Guardian is aware of the need to contact the office or return for an earlier appointment if any problems or concerns arise. May also contact the 24-hour crisis hotline ([facility]), refer to the closest emergency room or call 911 if new symptoms arise of existing symptoms worsen. The Patient/Guardian is aware that this would apply to symptoms like: suicidal ideation, homicidal ideation, high risk behaviors, manic symptoms, psychotic symptoms, physical symptoms, or any other symptoms that may be dangerous to self or others. Greater than 50% of time spent on coordination and counseling where psychopharmacology as well as psychotherapeutic interventions were discussed along with review of treatments in the past. Education provided concerning need for adequate hydration. Patient/Guardian verbalized understanding of education, treatment plan and follow up. 06/28/2025 Other Encouraged routine f/u with PCP Reasons, potential benefits, potential risks, interactions and side effects of all medications were discussed. The Patient/Guardian asked appropriate questions, appeared to understand the answers, and decided to accept the treatment and continue being followed. Alternatives and expected course without treatment were reviewed. The Patient/Guardian is aware of the need to contact the office or return for an earlier appointment if any problems or concerns arise. May also contact the 24-hour crisis hotline ([facility]), refer to the closest emergency room or call 911 if new symptoms arise of existing symptoms worsen. The Patient/Guardian is aware that this would apply to symptoms like: suicidal ideation, homicidal ideation, high risk behaviors, manic symptoms, psychotic symptoms, physical symptoms, or any other symptoms that may be dangerous to self or others. Greater than 50% of time spent on coordination and counseling where psychopharmacology as well as psychotherapeutic interventions were discussed along with review of treatments in the past. Education provided concerning need for adequate hydration. Patient/Guardian verbalized understanding of education, treatment plan and follow up. Plan Of Treatment No Information Insurance Providers Payer Name Payer Address Payer Phone Subscriber Number Group Number Insured Name Patient Relationship to Insured Coverage Start Date Coverage End Date [employer] Medicare Assure [address] [address] [place] [phone] [id number] Paula Brown Self - patient is the insured 5 MED[address] [place] [address] [id number] Paula Brown Self - patient is the insured 3 MEDICARE PART A [address] [place] [address] [id number] Paula Brown Self - patient is the insured 0 Medications Administered Medication Instructions Date of Administration Dosage Diagnosis (ICD Code) Notes Sublocade 06/08/2021 300 mg SN: [id number]. Patient tolerated well. Sublocade 07/06/2021 300 mg SN: [id number]. Patient tolerated well. Sublocade 08/03/2021 300 mg SN: [id number]. Patient tolerated well. Sublocade 08/31/2021 300 mg SN: [id number]. Patient tolerated well. Sublocade 06/27/2023 300 mg Sublocade 07/22/2023 300 mg Chelsea , Nahomy 07/22/2023 11:10:58 AM > Patient tolerated injection to the RLQ of the ABD well. Sublocade 08/20/2023 300 mg Chelsea , Nahomy 08/20/2023 10:26:25 AM > Ptient tolerated injection to the LLQ of the ABD well, minimal discomfort observed and reported. 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 Sublocade 11/07/2023 300 mg Pt ruben we ll. Given in right upper abd. Sublocade 12/04/2023 300 mg Sublocade 12/31/2023 300 mg RODERICK Pringle Stephanie N 12/31/2023 10:58:18 AM CDT > pt tolerated well with minimal discomfort observed or reported. Sublocade 01/29/2024 300 mg Pt. baron ated well. No questions or concerns at this time. Sublocade 02/25/2024 300 mg RODERICK Pringle Stephanie N 02/25/2024 10:26:22 AM CDT > Pt tolerated well with minimal discomfort observed or reported. Sublocade 03/24/2024 300 mg Sublocade 04/22/2024 300 mg Sublocade 05/20/2024 300 mg Sublocade 06/19/2024 300 mg Vivitrol 03/07/2021 380 mg tolerated well; instructed to massage area over next couple of days. verbalized understanding with no questions. Vivitrol 04/04/2021 380 mg Manufactu rer Alkermes. Pt tolerated well. Voiced no questions or concerns at present time Vivitrol 05/02/2021 380 mg Manufactu rer Alkermes. Pt tolerated well. Voiced no questions or concerns at present time. Medical (General) History Medical History History ICD Code Asthma Bipolar Disorder Anxiety SABINO AUD Surgical History Surgery Date(Month/Year) Tubal ligation Hospitalization History Reason Date(Month/Year) [facility] for suicide attempt - cutting wr ists ~2007 Pneumonia
--- OUTSIDE RECORDS SUMMARY | 2025-08-18 11:05 | XMS_ITS | Patient Health Record ---
Author Organization [facility] Address [address] [facility] [address] [place] [address] Care Team Providers Care Composer Teaching Artist Name Role Phone Niyah Moulton Unavailable [phone] Reason For Referral No Information Medications Medication SIG (Take, Route, Frequency, Duration) Notes Start Date End Date Status SEROquel 400 MG Tablet Oral Active HYDROcodone-Acetaminophen 5-325 MG Tablet Oral Active Melatonin 3 MG Tablet Oral Active QUEtiapine Fumarate 300 MG Tablet Oral Active Symbicort 160-4.5 MCG/ACT Aerosol Inhalation Active Cymbalta 60 MG Capsule Delayed Release Particles Oral Ac tive clonazePAM 0.5 MG Tablet Oral Active Cymbalta 30 MG Capsule Delayed Release Particles Oral Ac tive Plan Of Treatment No Information
--- NOTE | 2025-08-18 11:27 | ED.URI ---
HPI - URI/Sore Throat General Chief Complaint: Upper Respiratory Infection Stated Complaint: exposed to covid Time Seen by Provider: 08/18/25 11:24 Source: patient and RN notes reviewed Mode of arrival: ambulatory Limitations: no limitations History of Present Illness HPI Narrative: 45-year-old female patient presents today with a 2 day history of bilateral ear pain, sore throat, headache, nasal congestion. Denies fever. She has been taking Advil cold and Sinus with some mild relief. History of asthma for which she uses Combivent in an albuterol rescue inhaler. States the rescue inhaler has been helpful during if illness. Patient vapes. Related Data Home Medications ?Medication ?Instructions ?Recorded ?Confirmed ?Last Taken ?Type albuterol sulfate 90 mcg/actuation See Rx Instructions .Route 08/27/23 06/18/24 Unknown History aerosol inhaler .COMPLEX PRN sob ipratropium 20 mcg-albuterol 100 2 puff inhalation DAILY 08/27/23 06/18/24 Unknown History mcg/actuation mist for inhalation (Combivent Respimat) buprenorphine 300 mg/1.5 mL 300 mg subcut MONTHLY 06/18/24 06/18/24 Unknown History solution,exten.rel.subcutaneous syringe (Sublocade) bupropion HCl 150 mg 24 hr tablet, 150 mg PO DAILY 06/18/24 06/18/24 Unknown History extended release quetiapine 50 mg tablet 50 mg PO BID 06/18/24 06/18/24 Unknown History buprenorphine 4 mg-naloxone 1 mg 1 film buccal DAILY 08/14/24 08/14/24 Unknown History sublingual film (Suboxone) atomoxetine 40 mg capsule mg PO 08/18/25 Unknown History Allergies Allergy/AdvReac Type Severity Reaction Status Date / Time clindamycin Allergy Severe TONGUE Verified 08/18/25 11:00 SWELLING PMFSH Past Medical History Medical History Substance abuse in remission COPD (chronic obstructive pulmonary disease) History of sinus problem Pneumonia Asthma Bipolar disorder Surgical History Surgical History H/O tubal ligation Social History Social History Smoking packs per day: 1 Smoking cigarettes per day: 20.0 Years smoked: 25 Smoking pack-years: 25.00 Smoking status: Current every day smoker Tobacco type: cigarettes and e-cigarettes/vaping Alcohol intake: unknown Substance use type: former substance user, 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 Please see nursing chart for further information. There is no relevant family history pertinent to the presenting complaint Exam Narrative: GENERAL: Ill-appearing, well-nourished, and in no acute distress. HEAD: Normocephalic, atraumatic. EYES: EOMI. No redness or drainage. Conjunctivae normal. ENT: Mucous membranes pink and moist. Nares congested with rhinorrhea. TMs normal bilaterally. Throat normal. Uvula midline. NECK: Normal AROM. Supple. No lymphadenopathy. CHEST: No respiratory distress. Clear to auscultation. Harsh cough noted HEART: Regular rate and rhythm. No murmur appreciated. EXTREMITIES: Normal range of motion. No edema. SKIN: Warm, dry, no rash. Capillary refill normal. Normal skin turgor. NEURO: No focal deficits. Alert and oriented x3. Gait steady. PSYCH: Normal affect. No signs of depression or anxiety. Course Course Level of Care: Express Care Visit Vital Signs Vital signs: Vital Signs Temperature 99 F 08/18/25 10:58 Pulse Rate 99 08/18/25 10:58 Respiratory Rate 16 08/18/25 10:58 Blood Pressure 135/81 08/18/25 10:58 Pulse Oximetry 99 08/18/25 10:58 Oxygen Delivery Room Air 08/18/25 10:58 Temperature 99 F 08/18/25 10:58 Pulse Rate 99 08/18/25 10:58 Respiratory Rate 16 08/18/25 10:58 Blood Pressure 135/81 08/18/25 10:58 Pulse Oximetry 99 08/18/25 10:58 Oxygen Delivery Room Air 08/18/25 10:58 Reviewed [facility] MDM Narrative Medical decision making narrative: 45-year-old female patient presents today with a 2 day history of bilateral ear pain, sore throat, headache, nasal congestion. Denies fever. She has been taking Advil cold and Sinus with some mild relief. History of asthma for which she uses Combivent in an albuterol rescue inhaler. States the rescue inhaler has been helpful during if illness. Patient vapes. Upon exam, patient is ill-appearing with congestion, rhinorrhea and harsh cough. Influenza and COVID negative. Symptoms likely viral in etiology. Discussed [id number] medication use and duration of illness. Patient declines a steroid burst. Anticipatory guidance given. Patient agrees with plan. Vital signs stable. Differential Diagnosis Differential Diagnosis: COVID-19, influenza, URI, asthma exacerbation, pneumonia Lab Data [facility] Lab Attestation statement: I personally reviewed the patient's lab results. Labs: Lab Results 08/18/25 Range/Units 11:15 POC Influenza A Ag Negative (Negative) POC Influenza B Ag Negative (Negative) POC SARS CoV-2 Ag Negative (Negative) Critical Care Time Critical Care Time Critical Care Time: No Discharge Plan Discharge Clinical Impression: Upper respiratory infection Qualifiers: URI type: unspecified URI Qualified Code(s): J06.9 - Acute upper respiratory infection, unspecified Patient Disposition: Home Condition: Stable Instructions: Upper Respiratory Infection (DC) Additional Instructions: Your COVID-19 and influenza swabs are both negative today. Your symptoms are likely due to a viral illness, which is not treated with antibiotics. Virus symptoms can last for up to 7-10days. Take Tylenol or ibuprofen for pain or fever. Rest and stay hydrated. Follow up with your PCP in 5-7 days if symptoms are not improving. Go to the ER immediately if you develop shortness of breath, difficulty swallowing, or any other concerning symptoms. Patient Language: Turkish Prescriptions: No Action albuterol sulfate 90 mcg/actuation HFA aerosol inhaler See Rx Instructions .ROUTE .COMPLEX PRN (Reason: sob) Rx Instructions: as prescribed Combivent Respimat 20-100 mcg/actuation mist 2 puff INHALATION DAILY fluticasone propion-salmeterol [Advair Diskus] 250-50 mcg/dose blister with device 1 inh inhalation Q12H Qty: 60 0RF bupropion HCl 150 mg tablet extended release 24 hr 150 mg PO DAILY quetiapine 50 mg tablet 50 mg PO BID Sublocade 300 mg/1.5 mL solution, extended rel syringe 300 mg SUBCUT MONTHLY buprenorphine-naloxone [Suboxone] 4-1 mg film 1 film buccal DAILY Rx Instructions: place 1 strip/tab under (each) side of tongue atomoxetine 40 mg capsule PO Follow-up/Referrals: Harms,Anish Franks M.D. [Primary Care Provider] Time of Disposition: 11:46
[2025-08-18 11:33] LABS: EDCOVIDSCREEN Negative (Negative); EDINFLUASCREEN Negative (Negative); EDINFLUBSCREEN Negative (Negative)
== END 2025-08-18 11:50 | disposition home or self-care (01) ==
PROVIDERS: Emergency Provider Nurse Practitioner; PCP Family Medicine
DX: J06.9 Acute upper respiratory infection, unspecified (principal); J45.909 Unspecified asthma, uncomplicated; F31.9 Bipolar disorder, unspecified; F17.210 Nicotine dependence, cigarettes, uncomplicated; Z20.822 Contact with and (suspected) exposure to COVID-19
CPT/HCPCS: 87426; 87804; 99212; G0463